=== PATIENT | female | born 1950 | race Hispanic/Latino ===

== ENCOUNTER 2018-08-06 12:58 | Emergency (ER) | payer MEDICARE ==
[~2018-08-06] VITALS: Ht 149.9 cm; Wt 72.6 kg
[2018-08-06] MEDS ORDERED: HUMULIN-R100 UNITS/ (14:23)
[2018-08-06] MEDS ORDERED: TRIAMTERENE-HCTZ1 EA PO (14:23)
[2018-08-06] MEDS ORDERED: OMEPRAZOLE40 MG PO (14:23)
[2018-08-06] MEDS ORDERED: ATORVASTATIN CA20 MG PO (14:23)
[2018-08-06] MEDS ORDERED: NIFEDIPINE ER30 M1 PEG (14:23)
[2018-08-06] MEDS ORDERED: CLONIDINE HCL0.1 MG PO (14:23)
[2018-08-06] MEDS ORDERED: LOSARTAN POTAS100 MG PO (14:23)
[2018-08-06] MEDS ORDERED: CARVEDILOL12.5 MG PO (14:23)
[2018-08-06] MEDS ORDERED: PLAVIX75 MG PO (14:23)
[2018-08-06] MEDS ORDERED: LANTUS 3ML100 UNITS/ SQ (14:23)
[2018-08-06] MEDS ORDERED: ASPIR 8181 MG PO (14:23)
[2018-08-06] MEDS ORDERED: ULTRAM 50MG50 MG PO (14:23)
--- NOTE | 2018-08-06 15:28 | Diagnostic Imaging Report ---
LEFT FOOT X-RAY - 3 VIEWS, LEFT ANKLE X-RAY-3 VIEWS HISTORY: Left hip pain for 4 days, no trauma, \[id number] \[id number] COMPARISON: None available. FINDINGS: Bones: No acute displaced fracture. Osseous alignment is within normal limits. Joints: The joint spaces are well-maintained. Soft tissues: Calcaneal enthesopathic measuring 0.7 x 0.5 cm. IMPRESSION: No acute radiographic abnormality. Large calcaneal enthesophyte may relate to this patient pain. Signed by: Dr. Kayce Veronica M.D. on 08/06/2018 3:25 PM
--- NOTE | 2018-08-06 15:28 | Diagnostic Imaging Report ---
LEFT FOOT X-RAY - 3 VIEWS, LEFT ANKLE X-RAY-3 VIEWS HISTORY: Left hip pain for 4 days, no trauma, \[id number] \[id number] COMPARISON: None available. FINDINGS: Bones: No acute displaced fracture. Osseous alignment is within normal limits. Joints: The joint spaces are well-maintained. Soft tissues: Calcaneal enthesopathic measuring 0.7 x 0.5 cm. IMPRESSION: No acute radiographic abnormality. Large calcaneal enthesophyte may relate to this patient pain. Signed by: Dr. Kayce Veronica M.D. on 08/06/2018 3:25 PM
--- OUTSIDE RECORDS SUMMARY | 2018-08-10 13:30 | XMS REPORT | Summary of Care ---
Author Organization Unknown Address Unknown Phone Unavailable Encounter ARSH Joseph(EVETTE) [id number] Date(s): 05/09/14 - 05/11/14 [facility] [id number] Discharge Disposition: Home Physician Attending: Alen Dyer MD Physician Admitting: Alen Dyer MD Reason for Visit CHEST PAIN Vital Signs 1 2 3 Most recent to oldest [Reference Range]: 144.78 cm (05/10/14 5:00 AM) 144.78 cm (05/09/14 11:13 PM) Height 75.142 kg (05/10/14 5:13 AM) Current Weight 98.0 DegF (05/11/14 4:00 PM) 98.3 DegF (05/11/14 12:00 PM) 98.6 DegF (05/11/14 8:00 AM) Temperature Oral [96.4-99.1 DegF] 127 mmHg (05/11/14 4:00 PM) 194 mmHg *HI* (05/11/14 12:00 PM) 176 mmHg *HI* (05/11/14 8:00 AM) Systolic Blood Pressure [90-140 mmHg] 79 mmHg (05/11/14 4:00 PM) 82 mmHg (05/11/14 12:00 PM) 93 mmHg *HI* (05/11/14 8:00 AM) Diastolic Blood Pressure [60-90 mmHg] 18 BRMIN (05/11/14 4:00 PM) 16 BRMIN (05/11/14 12:00 PM) 16 BRMIN (05/11/14 8:00 AM) Respiratory Rate [14-20 BRMIN] 61 bpm (05/11/14 4:00 PM) 58 bpm *LOW* (05/11/14 12:00 PM) 60 bpm (05/11/14 8:00 AM) Peripheral Pulse Rate [60-100 bpm] 75 kg (05/10/14 5:00 AM) 75 kg (05/09/14 11:13 PM) Weight 35.78 m2 (05/10/14 5:00 AM) 35.78 m2 (05/09/14 11:13 PM) Body Mass Index Problem List Condition Effective Dates Status Health Status Informant Asthma(Confirmed) Resolved Diabetes(Confirmed) Resolved HTN - Resolved Hypertension(Confirm ed) Osteoporosis(Confirm Resolved ed) Allergies, Adverse Reactions, Alerts Substance Reaction Severity Status NKDA Active Medications amLODIPine 10 mg, 2 tab, Route: PO, Drug form: TAB, Daily, Dosing Weight 75, kg, Start date : 05/11/14 9:00:00, Duration: 30 day, Stop date: 06/09/14 9:00:00 Notes: (Same as: Norvasc) Start Date: 05/11/14 Stop Date: 05/11/14 Status: Discontinued amLODIPine 10 mg oral tablet 10 mg=1 tab, PO, Daily, # 30 tab, 0 Refill(s) Start Date: 05/10/14 Status: Ordered anastrozole 1 mg, 1 tab, Route: PO, Drug form: TAB, Daily, Dosing Weight 75, kg, Start date: 05/11/14 9:00:00, Stop date: 06/08/14 20:00:00 Start Date: 05/11/14 Stop Date: 05/11/14 Status: Discontinued anastrozole 1 mg oral tablet 1 mg=1 tab, PO, Daily, # 30 tab, 0 Refill(s) Start Date: 05/10/14 Status: Ordered aspirin 81 mg tablet, enteric coated 81 mg=1 tab, PO, Daily, # 30 tab, 1 Refill(s) Start Date: 05/11/14 Stop Date: 07/10/14 Status: Ordered aspirin 81 mg tablet, enteric coated 81 mg, 1 tab, Route: PO, Drug form: ECTAB, Daily, Dosing Weight 75, kg, Priority : STAT, Start date: 05/10/14 11:07:00, Duration: 30 day, Stop date: 06/09/14 9:0 0:00 Notes: Do not crush or chew.(Same As: Ecotrin) Start Date: 05/10/14 Stop Date: 05/11/14 Status: Discontinued atorvastatin 80 mg, 2 tab, Route: PO, Drug form: TAB, Bedtime, Dosing Weight 75, kg, Start da te: 05/10/14 21:00:00, Duration: 30 day, Stop date: 06/08/14 21:00:00 Notes: (Same as: Lipitor) Start Date: 05/10/14 Stop Date: 05/11/14 Status: Discontinued atorvastatin 80 mg oral tablet 80 mg=1 tab, PO, Bedtime, # 30 tab, 0 Refill(s) Start Date: 05/10/14 Status: Ordered atropine 0.5 mg, 5 mL, Route: IVP, Drug form: INJ, PRN, PRN Bradycardia, Start date: 04/25 04/08 5:26:00, Duration: 30 day, Stop date: 06/09/14 5:25:00 Start Date: 05/10/14 Stop Date: 05/11/14 Status: Discontinued clopidogrel 75 mg oral tablet 75 mg=1 tab, PO, Daily, # 30 tab, 1 Refill(s) Start Date: 05/11/14 Stop Date: 07/10/14 Status: Ordered Dextrose 50% Syringe 12.5 gm, 25 mL, Route: IVP, Drug Form: INJ, Dosing Weight 75, kg, PRN, PRN Blood Glucose Results, Start date: 05/10/14 4:55:00, Duration: 30 day, Stop date: 4:54:00 Start Date: 05/10/14 Stop Date: 05/11/14 Status: Discontinued Dextrose 50% Syringe 25 gm, 50 mL, Route: IVP, Drug Form: INJ, Dosing Weight 75, kg, PRN, PRN Blood G lucose Results, Start date: 05/10/14 4:55:00, Duration: 30 day, Stop date: 06/09 4:54:00 Start Date: 05/10/14 Stop Date: 05/11/14 Status: Discontinued GlipiZIDE XL 10 mg oral tablet, extended release 10 mg=1 tab, PO, BID, # 30 tab, 0 Refill(s) Start Date: 05/10/14 Status: Ordered GlipiZIDE XL 10 mg oral tablet, extended release 10 mg, 1 tab, Route: PO, Drug form: ERTAB, BID, Dosing Weight 75, kg, Start date : 05/10/14 17:00:00, Duration: 30 day, Stop date: 06/09/14 9:00:00 Notes: (Same as: Glucotrol XL)"Do Not Crush" 30 min before meals. Start Date: 05/10/14 Stop Date: 05/11/14 Status: Discontinued glucagon 1 mg, Route: IM, Drug form: PDR/INJ, PRN, Dosing Weight 75, kg, PRN Blood Glucos e Results, Start date: 05/10/14 4:55:00, Duration: 30 day, Stop date: 06/09/14 4 :54:00 Start Date: 05/10/14 Stop Date: 05/11/14 Status: Discontinued Humalog sliding scale, SUB-Q, TID-Before Meals, as needed, 0 Refill(s) Special Instructions: as needed Start Date: 05/11/14 Status: Ordered insulin aspart 4 unit, 0.04 mL, Route: SUB-Q, Drug form: SOLN, TID-Before Meals, Dosing Weight 75, kg, PRN Blood Glucose Results, Start date: 05/10/14 4:55:00, Duration: 30 da y, Stop date: 06/09/14 4:54:00 Notes: Roll in palms of hands gently; Do not shake vigorously. (Same as: NovoLO G)"single patient use only" Stable for 28 days at room temperature.Expires in _ ____ days from Date Start Date: 05/10/14 Stop Date: 05/11/14 Status: Discontinued insulin aspart 5 unit, 0.05 mL, Route: SUB-Q, Drug form: SOLN, TID-Before Meals, Dosing Weight 75, kg, PRN Blood Glucose Results, Start date: 05/10/14 4:55:00, Duration: 30 da y, Stop date: 06/09/14 4:54:00 Notes: Roll in palms of hands gently; Do not shake vigorously. (Same as: NovoLO G)"single patient use only" Stable for 28 days at room temperature.Expires in _ ____ days from Date Start Date: 05/10/14 Stop Date: 05/11/14 Status: Discontinued insulin aspart 3 unit, 0.03 mL, Route: SUB-Q, Drug form: SOLN, TID-Before Meals, Dosing Weight 75, kg, PRN Blood Glucose Results, Start date: 05/10/14 4:55:00, Duration: 30 da y, Stop date: 06/09/14 4:54:00 Notes: Roll in palms of hands gently; Do not shake vigorously. (Same as: NovoLO G)"single patient use only" Stable for 28 days at room temperature.Expires in _ ____ days from Date Start Date: 05/10/14 Stop Date: 05/11/14 Status: Discontinued insulin aspart 2 unit, 0.02 mL, Route: SUB-Q, Drug form: SOLN, TID-Before Meals, Dosing Weight 75, kg, PRN Blood Glucose Results, Start date: 05/10/14 4:55:00, Duration: 30 da y, Stop date: 06/09/14 4:54:00 Notes: Roll in palms of hands gently; Do not shake vigorously. (Same as: NovoLO G)"single patient use only" Stable for 28 days at room temperature.Expires in _ ____ days from Date Start Date: 05/10/14 Stop Date: 05/11/14 Status: Discontinued insulin aspart 1 unit, 0.01 mL, Route: SUB-Q, Drug form: SOLN, TID-Before Meals, Dosing Weight 75, kg, PRN Blood Glucose Results, Start date: 05/10/14 4:55:00, Duration: 30 da y, Stop date: 06/09/14 4:54:00 Notes: Roll in palms of hands gently; Do not shake vigorously. (Same as: NovoLO G)"single patient use only" Stable for 28 days at room temperature.Expires in _ ____ days from Date Start Date: 05/10/14 Stop Date: 05/11/14 Status: Discontinued Insulin regular 5 unit, Route: IV, ONCE, Dosing Weight 75, kg, Start date: 05/10/14 4:12:00, Sto p date: 05/10/14 4:12:00 Start Date: 05/10/14 Stop Date: 05/10/14 Status: Completed Insulin regular 10 unit, 0.1 mL, Route: IV, Drug form: INJ, ONCE, Dosing Weight 75, kg, Start da te: 05/10/14 4:39:00, Stop date: 05/10/14 4:39:00 Notes: (Same as: Humulin R and NovoLIN R) (Do not shake) Start Date: 05/10/14 Stop Date: 05/10/14 Status: Completed Insulin regular 10 unit, Route: SUB-Q, ONCE, Dosing Weight 75, kg, Priority: STAT, Start date: 0 05/10/14 1:56:00, Stop date: 05/10/14 1:56:00 Start Date: 05/10/14 Stop Date: 05/10/14 Status: Completed Klor-Con 10 0 Refill(s) Start Date: 05/10/14 Status: Ordered Lantus 25 unit, SUB-Q, Bedtime, 0 Refill(s) Start Date: 05/11/14 Status: Ordered Lantus 25 unit, Route: SUB-Q, Bedtime, Dosing Weight 75, kg, Start date: 05/11/14 21:00 :00, Duration: 30 day, Stop date: 06/09/14 21:00:00 Start Date: 05/11/14 Stop Date: 05/11/14 Status: Deleted Levemir FlexPen 25 unit, 0.25 mL, Route: SUB-Q, Drug form: INJ, Bedtime, Start date: 05/11/14 21 :00:00, Duration: 30 day, Stop date: 06/09/14 21:00:00 Notes: Same as Levemir "single patient use only" Start Date: 05/11/14 Stop Date: 05/11/14 Status: Canceled lisinopril 20 mg, 1 tab, Route: PO, Drug form: TAB, ONCE, Dosing Weight 75, kg, Priority: S TAT, Start date: 05/10/14 2:20:00, Stop date: 05/10/14 2:20:00 Notes: (Same as: Prinivil, Zestril) Start Date: 05/10/14 Stop Date: 05/10/14 Status: Completed magnesium sulfate 2 gm, 50 mL, Route: IVPB, Drug form: INJ, Q2H, Dosing Weight 75, kg, Total dose= 4 gm, Priority: NOW, Start date: 05/11/14 9:08:00, Duration: 2 doses or times, S top date: 05/11/14 11:00:00 Start Date: 05/11/14 Stop Date: 05/11/14 Status: Completed metFORMIN 500 mg oral tablet 500 mg=1 tab, PO, TID, # 30 tab, 0 Refill(s) Start Date: 05/10/14 Status: Ordered metoprolol tartrate 25 mg, 1 tab, Route: PO, Drug form: TAB, ONCE, Dosing Weight 75, kg, Priority: S TAT, Start date: 05/10/14 2:20:00, Stop date: 05/10/14 2:20:00 Notes: (Same as: Lopressor) Start Date: 05/10/14 Stop Date: 05/10/14 Status: Completed metoprolol tartrate 100 mg, 2 tab, Route: PO, Drug form: TAB, Q12H, Dosing Weight 75, kg, Start date : 05/10/14 21:00:00, Duration: 30 day, Stop date: 06/09/14 9:00:00 Notes: (Same as: Lopressor) Start Date: 05/10/14 Stop Date: 05/11/14 Status: Discontinued metoprolol tartrate 100 mg oral tablet 100 mg=1 tab, PO, BID, # 180 tab, 0 Refill(s) Start Date: 05/10/14 Status: Ordered nitroglycerin 0.4 mg sublingual tablet 0.4 mg, 1 tab, Route: SL, Drug form: TAB, Q5Min, PRN Chest Pain, Start date: 5:26:00, Duration: 30 day, Stop date: 06/09/14 5:25:00 Notes: (Same as:Nitroquick, Nitrostat)"Do Not Crush" Sublingual tablet Start Date: 05/10/14 Stop Date: 05/10/14 Status: Discontinued nitroglycerin 2% ointment 1 inch, Route: TOP, Drug Form: OINT, Dosing Weight 75, kg, ONCE, STAT, Start heidi e: 05/09/14 23:50:00, Stop date: 05/09/14 23:50:00 Start Date: 05/09/14 Stop Date: 05/10/14 Status: Completed nitroglycerin SL Tab 0.4 mg, 1 tab, Route: SL, Drug form: TAB, Q5Min, Dosing Weight 75, kg, PRN Chest Pain, Start date: 05/10/14 16:44:00, Duration: 3 doses or times, Stop date: [place] it[place] # of times Notes: (Same as:Nitroquick, Nitrostat)"Do Not Crush" Sublingual tablet Start Date: 05/10/14 Stop Date: 05/11/14 Status: Discontinued nitroglycerin SL Tab 0.4 mg, 1 tab, Route: SL, Drug form: TAB, Q5Min, Dosing Weight 75, kg, PRN Chest Pain, Start date: 05/10/14 4:56:00, Duration: 3 doses or times, Stop date: [place] # of times Notes: (Same as:Nitroquick, Nitrostat)"Do Not Crush" Sublingual tablet Start Date: 05/10/14 Stop Date: 05/11/14 Status: Discontinued Nitrostat 0.4 mg sublingual tablet 0.4 mg=1 tab, SL, Q5Min, Chest Pain, # 100 tab, 0 Refill(s) Start Date: 05/10/14 Status: Ordered normal saline 0.9% IV 500 mL 500 mL, Rate: 100 ml/hr, Infuse over: 5 hr, Route: IV, Dosing Weight 75 kg, Tota l Volume: 500, Priority: NOW, Start date: 05/10/14 11:06:00, Duration: 30 day, S top date: 06/09/14 11:05:00 Start Date: 05/10/14 Stop Date: 05/10/14 Status: Discontinued normal saline 0.9% IV 500 mL 500 mL, Rate: 75 ml/hr, Infuse over: 6.7 hr, Route: IV, Dosing Weight 75 kg, Tot al Volume: 500, Priority: NOW, Start date: 05/10/14 16:43:00, Duration: 14 hr, S top date: 05/11/14 6:42:00 Start Date: 05/10/14 Stop Date: 05/11/14 Status: Completed NS (Bolus) IV 100 mL, 100 ml/hr, Infuse Over: 1 hr, Route: IV, 100, Drug form: INJ, ONCE, Prio rity: STAT, Dosing Weight 75 kg, Start date: 05/11/14 11:01:00, Duration: 1 dose s or times, Stop date: 05/11/14 11:01:00 Start Date: 05/11/14 Stop Date: 05/11/14 Status: Completed NS (Bolus) IV 50 mL, 50 ml/hr, Infuse Over: 1 hr, Route: IV, 50, Drug form: INJ, ONCE, Priorit y: STAT, Dosing Weight 75 kg, Start date: 05/11/14 10:08:00, Duration: 1 doses o r times, Stop date: 05/11/14 10:08:00 Start Date: 05/11/14 Stop Date: 05/11/14 Status: Completed NS (Bolus) IV 500 mL, 500 ml/hr, Infuse Over: 1 hr, Route: IV, ONCE, Priority: STAT, Dosing We ight 75 kg, Start date: 05/11/14 12:36:00, Duration: 1 doses or times, Stop date : 05/11/14 12:36:00 Start Date: 05/11/14 Stop Date: 05/11/14 Status: Completed NS (Bolus) IV 1,000 mL, Route: IV, ONCE, Dosing Weight 75 kg, Start date: 05/10/14 1:56:00, St op date: 05/10/14 1:56:00 Start Date: 05/10/14 Stop Date: 05/10/14 Status: Completed omeprazole 20 mg oral delayed release capsule 20 mg=1 cap, PO, PRN, # 30 cap, 0 Refill(s) Start Date: 05/10/14 Stop Date: 06/09/14 Status: Ordered pantoprazole 40 mg, 1 tab, Route: PO, Drug form: ECTAB, Before Dinner, Dosing Weight 75, kg, Priority: Routine, Start date: 05/10/14 16:30:00, Duration: 30 day, Stop date: 0 06/08/14 16:30:00 Notes: Tablet should not be chewed or crushed.(Same as: Protonix) Start Date: 05/10/14 Stop Date: 05/11/14 Status: Discontinued Plavix 75 mg, 1 tab, Route: PO, Drug form: TAB, Daily, Dosing Weight 75, kg, Start date : 05/11/14 9:00:00, Duration: 30 day, Stop date: 06/09/14 9:00:00 Notes: (Same As: Plavix) Start Date: 05/11/14 Stop Date: 05/11/14 Status: Discontinued potassium chloride 20 mEq, 100 mL, Route: IVPB, Drug form: INJ, Q2H, Dosing Weight 75, kg, Total do se=40 mEq, Priority: NOW, Start date: 05/11/14 9:10:00, Duration: 2 doses or radha es, Stop date: 05/11/14 11:00:00 Notes: (Same as: KCL) Infuse no faster than 10 mEq/hr if given peripherally. Start Date: 05/11/14 Stop Date: 05/11/14 Status: Completed predniSONE 20 mg oral tablet See Special Instructions, PO, Daily, 12 day regimen: Days 1-4 - 40 mg (2 tabs) daily Days 5-8 - 20 mg (1 tab) daily Days 9-12 - 10 mg (1/2 tab) daily, # 12 t ab, 0 Refill(s) Special Instructions: 12 day regimen:Days 1-4 - 40 mg (2 tabs) dailyDays 5-8 - 2 0 mg (1 tab) dailyDays 9-12 - 10 mg (1/2 tab) daily Start Date: 05/10/14 Stop Date: 05/22/14 Status: Ordered Saline Flush 0.9% 5 ml, Route: IVP, Drug Form: INJ, Dosing Weight 75, kg, Q12H, Start date: 21:00:00, Duration: 30 day, Stop date: 06/09/14 9:00:00 Notes: (Same as: BD Posiflush) Start Date: 05/10/14 Stop Date: 05/11/14 Status: Discontinued Saline Flush 0.9% 5 ml, Route: IVP, Drug Form: INJ, Dosing Weight 75, kg, PRN, PRN Line Flush, Sta rt date: 05/10/14 16:44:00, Duration: 30 day, Stop date: 06/09/14 16:43:00 Notes: (Same as: BD Posiflush) Start Date: 05/10/14 Stop Date: 05/11/14 Status: Discontinued Saline Flush 0.9% 5 ml, Route: IVP, Drug Form: INJ, Dosing Weight 75, kg, Q12H, Start date: 9:00:00, Duration: 30 day, Stop date: 06/08/14 21:00:00 Notes: (Same as: BD Posiflush) Start Date: 05/10/14 Stop Date: 05/11/14 Status: Discontinued Saline Flush 0.9% 5 ml, Route: IVP, Drug Form: INJ, Dosing Weight 75, kg, PRN, PRN Line Flush, Sta rt date: 05/10/14 4:56:00, Duration: 30 day, Stop date: 06/09/14 4:55:00 Notes: (Same as: BD Posiflush) Start Date: 05/10/14 Stop Date: 05/11/14 Status: Discontinued triamterene 0 Refill(s) Start Date: 05/10/14 Stop Date: 05/11/14 Status: Discontinued Tylenol with Codeine #3 oral tablet 1 tab, Route: PO, Drug Form: TAB, Dosing Weight 75, kg, Q6H, PRN as needed for p ain, Start date: 05/10/14 5:20:00, Duration: 30 day, Stop date: 06/09/14 5:19:00 Notes: Do not exceed 4gm/day of acetaminophen. (Same as: Tylenol with Codeine # 3) Start Date: 05/10/14 Stop Date: 05/11/14 Status: Discontinued Tylenol with Codeine #3 oral tablet 1 tab, Route: PO, Dosing Weight 75, kg, Q6H, PRN Pain, Start date: 05/10/14 17:3 9:00, Duration: 30 day, Stop date: 06/09/14 17:38:00 Start Date: 05/10/14 Stop Date: 05/10/14 Status: Deleted Zofran 4 mg, 2 mL, Route: IV, Drug form: INJ, Q8H, Dosing Weight 75, kg, PRN as needed for nausea/vomiting, Start date: 05/10/14 5:20:00, Duration: 30 day, Stop date: 06/09/14 5:19:00 Notes: (Same as: Zofran) Start Date: 05/10/14 Stop Date: 05/11/14 Status: Discontinued Zofran 4 mg, Route: IV, Drug form: INJ, Q8H, Dosing Weight 75, kg, PRN Nausea, Start da te: 05/10/14 17:39:00, Duration: 30 day, Stop date: 06/09/14 17:38:00 Start Date: 05/10/14 Stop Date: 05/10/14 Status: Deleted Results ELECTROLYTES 1 2 3 Most recent to oldest [Reference Range]: 138 mEq/L (05/11/14 4:13 AM) 139 mEq/L (05/10/14 6:09 AM) 135 mEq/L (05/09/14 12:15 AM) Sodium Lvl [135-145 mEq/L] 3.1 mEq/L *LOW* (05/11/14 4:13 AM) 3.8 mEq/L (05/10/14 6:09 AM) 3.7 mEq/L (05/09/14 12:15 AM) Potassium Lvl [3.5-5.1 mEq/L] 102 mEq/L (05/11/14 4:13 AM) 103 mEq/L (05/10/14 6:09 AM) 100 mEq/L (05/09/14 12:15 AM) Chloride Lvl [95-109 mEq/L] 29 mEq/L (05/11/14 4:13 AM) 28 mEq/L (05/10/14 6:09 AM) 23 mEq/L *LOW* (05/09/14 12:15 AM) CO2 [24-32 mEq/L] 10.1 mEq/L (05/11/14 4:13 AM) 11.8 mEq/L (05/10/14 6:09 AM) 15.7 mEq/L (05/09/14 12:15 AM) AGAP [10.0-20.0 mEq/L] CHEM PANEL 1 2 3 Most recent to oldest [Reference Range]: 0.8 mg/dL (05/11/14 4:13 AM) 0.7 mg/dL (05/10/14 6:09 AM) 1.0 mg/dL (05/09/14 12:15 AM) Creatinine Lvl [0.5-1.4 mg/dL] 79 mL/min/1.73m2 1 *NA* (05/11/14 4:13 AM) 92 mL/min/1.73m2 2 *NA* (05/10/14 6:09 AM) 60 mL/min/1.73m2 3 *NA* (05/09/14 12:15 AM) eGFR 16 mg/dL (05/11/14 4:13 AM) 23 mg/dL *HI* (05/10/14 6:09 AM) 24 mg/dL *HI* (05/09/14 12:15 AM) BUN [7-22 mg/dL] 24 (05/09/14 12:15 AM) B/C Ratio [6-25] 225 mg/dL 4 *HI* (05/11/14 4:13 AM) 247 mg/dL 5 *HI* (05/10/14 6:09 AM) 371 mg/dL 6 *HI* (05/09/14 12:15 AM) Glucose Lvl [70-99 mg/dL] 6.9 g/dL (05/09/14 12:15 AM) Total Protein [6.4-8.4 g/dL] 3.7 g/dL (05/09/14 12:15 AM) Albumin Lvl [3.5-5.0 g/dL] 3.2 g/dL (05/09/14 12:15 AM) Globulin [2.0-4.0 g/dL] 1.2 (05/09/14 12:15 AM) A/G Ratio [0.7-1.6] 8.7 mg/dL (05/11/14 4:13 AM) 9.0 mg/dL (05/10/14 6:09 AM) 9.2 mg/dL (05/09/14 12:15 AM) Calcium Lvl [8.5-10.5 mg/dL] 1.6 mg/dL *LOW* (05/11/14 4:13 AM) Magnesium Lvl [1.8-2.4 mg/dL] 55 unit/L (05/09/14 12:15 AM) ALT [0-65 unit/L] 25 unit/L (05/09/14 12:15 AM) AST [0-37 unit/L] 70 unit/L (05/09/14 12:15 AM) Alk Phos [39-136 unit/L] 0.7 mg/dL (05/09/14 12:15 AM) Bili Total [0.2-1.3 mg/dL] 1Result Comment: The eGFR is calculated using the CKD-EPI formula. In most young, healthy individuals the eGFR will be >90 mL/min/1.73m2. The eGFR declines with age. An eGFR of 60-89 may be normal in some populations, particularly the elderly, for whom the CKD-EPI formula has not been extensively validated. Use of the eGFR is not recommended in the following populations: Individuals with unstable creatinine concentrations, including patients and those with serious co-morbid conditions. Patients with extremes in muscle mass or diet. The data above are obtained from the National Kidney Disease Education Program ( NKDEP) which additionally recommends that when the eGFR is used in patients with extremes of body mass index for purposes of drug dosing, the eGFR should be mul tiplied by the estimated BMI. 2Result Comment: The eGFR is calculated using the CKD-EPI formula. In most young, healthy individuals the eGFR will be >90 mL/min/1.73m2. The eGFR declines with age. An eGFR of 60-89 may be normal in some populations, particularly the elderly, for whom the CKD-EPI formula has not been extensively validated. Use of the eGFR is not recommended in the following populations: Individuals with unstable creatinine concentrations, including patients and those with serious co-morbid conditions. Patients with extremes in muscle mass or diet. The data above are obtained from the National Kidney Disease Education Program ( NKDEP) which additionally recommends that when the eGFR is used in patients with extremes of body mass index for purposes of drug dosing, the eGFR should be mul tiplied by the estimated BMI. 3Result Comment: The eGFR is calculated using the CKD-EPI formula. In most young, healthy individuals the eGFR will be >90 mL/min/1.73m2. The eGFR declines with age. An eGFR of 60-89 may be normal in some populations, particularly the elderly, for whom the CKD-EPI formula has not been extensively validated. Use of the eGFR is not recommended in the following populations: Individuals with unstable creatinine concentrations, including patients and those with serious co-morbid conditions. Patients with extremes in muscle mass or diet. The data above are obtained from the National Kidney Disease Education Program ( NKDEP) which additionally recommends that when the eGFR is used in patients with extremes of body mass index for purposes of drug dosing, the eGFR should be mul tiplied by the estimated BMI. 4Interpretive Data: Adult reference range values reflect the clinical guidelines of the [employer]. 5Interpretive Data: Adult reference range values reflect the clinical guidelines of the [employer]. 6Interpretive Data: Adult reference range values reflect the clinical guidelines of the [place] [employer]. CARDIAC ENZYMES 1 2 3 Most recent to oldest [Reference Range]: 50 unit/L (05/10/14 12:56 PM) 57 unit/L (05/10/14 6:09 AM) 77 unit/L (05/09/14 12:15 AM) Total CK [12-191 unit/L] 2.4 ng/mL (05/09/14 12:15 AM) CK MB [0.5-3.6 ng/mL] 3.1 *HI* (05/09/14 12:15 AM) CK MB Index [0.0-2.5] <0.02 ng/mL (05/10/14 12:56 PM) <0.02 ng/mL (05/10/14 6:09 AM) <0.02 ng/mL (05/09/14 12:15 AM) Troponin-I [0.00-0.40 ng/mL] 71 pg/mL 7 (05/09/14 12:15 AM) BNP [<=100 pg/mL] 7Interpretive Data: Elevated results are in line with increasing severity of congestive heart failure. Minor elevations between 100 and 300 may be seen with Myocardial Ischemia, Sodium retaining drugs, and compensated/treated heart failure. HEMATOLOGY 1 2 3 Most recent to oldest [Reference Range]: 6.4 K/CMM (05/11/14 4:13 AM) 9.6 K/CMM (05/10/14 6:09 AM) 9.6 K/CMM (05/09/14 12:15 AM) WBC [3.7-10.4 K/CMM] 4.18 M/CMM *LOW* (05/11/14 4:13 AM) 4.09 M/CMM *LOW* (05/10/14 6:09 AM) 4.37 M/CMM (05/09/14 12:15 AM) RBC [4.20-5.40 M/CMM] 12.7 g/dL (05/11/14 4:13 AM) 12.4 g/dL (05/10/14 6:09 AM) 13.3 g/dL (05/09/14 12:15 AM) Hgb [12.0-16.0 g/dL] 36.0 % (05/11/14 4:13 AM) 35.6 % *LOW* (05/10/14 6:09 AM) 37.9 % (05/09/14 12:15 AM) Hct [36.0-48.0 %] 86.0 fL (05/11/14:13 AM) 87.0 fL (05/10/14 6:09 AM) 86.7 fL (05/09/14 12:15 AM) MCV [81.0-99.0 fL] 30.4 pg (05/11/14:13 AM) 30.2 pg (05/10/14 6:09 AM) 30.5 pg (05/09/14 12:15 AM) MCH [27.0-31.0 pg] 35.3 g/dL (05/11/14 4:13 AM) 34.8 g/dL (05/10/14 6:09 AM) 35.1 g/dL (05/09/14 12:15 AM) MCHC [32.0-36.0 g/dL] 12.9 % (05/11/14:13 AM) 13.0 % (05/10/14 6:09 AM) 12.9 % (05/09/14 12:15 AM) RDW [11.5-14.5 %] 218 K/CMM (05/11/14 4:13 AM) 225 K/CMM (05/10/14 6:09 AM) 243 K/CMM (05/09/14 12:15 AM) Platelet [133-450 K/CMM] 8.4 fL (05/11/14 4:13 AM) 8.4 fL (05/10/14 6:09 AM) 8.8 fL (05/09/14 12:15 AM) MPV [7.4-10.4 fL] 51.7 % (05/11/14 4:13 AM) 55.7 % (05/10/14 6:09 AM) 68.7 % (05/09/14 12:15 AM) Segs [45.0-75.0 %] 34.0 % (05/11/14 4:13 AM) 33.7 % (05/10/14 6:09 AM) 25.9 % (05/09/14 12:15 AM) Lymphocytes [20.0-40.0 %] 9.5 % (05/11/14 4:13 AM) 9.2 % (05/10/14 6:09 AM) 4.7 % (05/09/14 12:15 AM) Monocytes [2.0-12.0 %] 3.5 % (05/11/14 4:13 AM) 0.8 % (05/10/14 6:09 AM) Eosinophils [0.0-4.0 %] 1.3 % *HI* (05/11/14 4:13 AM) 0.6 % (05/10/14 6:09 AM) 0.7 % (05/09/14 12:15 AM) Basophils [0.0-1.0 %] 3.3 K/CMM (05/11/14 4:13 AM) 5.3 K/CMM (05/10/14 6:09 AM) 6.6 K/CMM (05/09/14 12:15 AM) Segs-Bands # [1.5-8.1 K/CMM] 2.2 K/CMM (05/11/14 4:13 AM) 3.2 K/CMM (05/10/14 6:09 AM) 2.5 K/CMM (05/09/14 12:15 AM) Lymphocytes # [1.0-5.5 K/CMM] 0.6 K/CMM (05/11/14 4:13 AM) 0.9 K/CMM *HI* (05/10/14 6:09 AM) 0.5 K/CMM (05/09/14 12:15 AM) Monocytes # [0.0-0.8 K/CMM] 0.2 K/CMM (05/11/14 4:13 AM) 0.1 K/CMM (05/10/14 6:09 AM) Eosinophils # [0.0-0.5 K/CMM] 0.1 K/CMM (05/11/14 4:13 AM) 0.1 K/CMM (05/10/14 6:09 AM) 0.1 K/CMM (05/09/14 12:15 AM) Basophils # [0.0-0.2 K/CMM] 13.7 seconds (05/09/14 12:15 AM) PT [12.0-14.7 seconds] 1.06 8 (05/09/14 12:15 AM) INR [0.85-1.17] 27.5 seconds 9 (05/09/14 12:15 AM) PTT [22.9-35.8 seconds] 8Interpretive Data: RECOMMENDED RANGES FOR PROTIME INR: 2.0-3.0 for most medical and surgical thromboembolic states. 2.5-3.5 for artificial heart valves and recurrent embolism. INR SHOULD BE USED ONLY FOR PATIENTS ON STABLE ANTICOAGULANT THERAPY. 9Interpretive Data: Heparin Therapeutic Range: 57 - 92 [facility] Medications Administered During Your Visit No data available for this section Immunizations No data available for this section Procedures Procedure Type Body Site Date of Procedure Related Diagnosis Lumpectomy of breast Partial mastectomy Stent placement Social History Social History Type Response Smoking Status Never smoker, Exposure to Tobacco Smoke None, Cigarette Smoking Last 365 Days No, Reg Smoking Cessation Counseling No Assessment and Plan Extracted from: Title: [id number] Author: Brett Markham MD Date: 05/11/14 Impression and Plan Diagnosis: Unstable angina pectoris (ICD9 411.1, Admitting, Medical), Stented coronary artery (ICD9 V45.82, Procedure, Medical), Diabetes mellitus type 1, uncontrolled, with complications (ICD9 250.93, Other, Medical), HTN - Hypertension (ICD9 401.9, Working, Medical). 1. Unstable Angina: S/P Cardiac Cath and angioplasty and stent placement by Dr Dyer on 05/10/2014. Now doing better. 2. Diabetes II : On Insulin . I discuss with her that she should follow with her primary MD for her Diabetes II. 3. Hypertension: On medication and stable at this time. Medically stable. Extracted from: Title: Clinical Document Author: Alen Dyer MD Date: 05/11/14 Progress Note [facility] Alen Dyer M.D. [facility] Admitting diagnosis: Unstable angina Discharge diagnosis: S/P BMS of pLAD hypokalemia and hypomag: being corrected before discharge Other Diagnosis: 1. Hypertension. 2. Diabetes on insulin and oral hypoglycemic agent. 3. CAD status post stent placement in 2003 and 2005 One at [facility] and another one in [place]. 4. Obesity. 5. Dyslipidemia. VitalsTmp(F)Tmp(C)[id number] 05/11 08:[id number]/93---[id number]------ 05/11 04:[id number]/73---[id number]------ 05/11 00:[id number]/75---[id number]------ 05/10 21:00 150/74---69--96------ 05/10 20:[id number]/73---66 General: No acute distress; Eyes:EOMI Neck: No JVD; no swelling Heart: S1, S2 normal; No murmur, No rub, No gallop Chest: B/L Air Entry +; No wheeze; No crepititions PA: BS+; NT; ND NS: AAOx3; No signs of lateralization Extremities,Lower : No edema; left groin: no swelling; bleeding or pain Labs & Diagnostic Work up: Labs (Last four charted values) WBC 6.4(MAY 11)9.6(MAY 10)9.6(MAY 09) Hgb 12.7(MAY 11)12.4(MAY 10)13.3(MAY 09) Hct 36.0(MAY 11)L 35.6(MAY 10)37.9(MAY 09) Plt 218(MAY 11)225(MAY 10)243(MAY 09) Na 138(MAY 11)139(MAY 10)135(MAY 09) K L 3.1(MAY 11)3.8(MAY 10)3.7(MAY 09) CO2 29(MAY 11)28(MAY 10)L 23(MAY 09) Cl 102(MAY 11)103(MAY 10)100(MAY 09) Cr 0.8(MAY 11)0.7(MAY 10)1.0(MAY 09) BUN 16(MAY 11)H 23(MAY 10)H 24(MAY 09) Glucose Random H 225(MAY 11)H 247(MAY 10)H 371(MAY 09) Mg L 1.6(MAY 11) Ca 8.7(MAY 11)9.0(MAY 10)9.2(MAY 09) PT 13.7(MAY 09) INR 1.06(MAY 09) PTT 27.5(MAY 09) Troponin <0.02(MAY 10)<0.02(MAY 10)<0.02(MAY 09) CK MB 2.4(MAY 09) Total CK 50(MAY 10)57(MAY 10)77(MAY 09) Medications Medications (28) Active Scheduled: (13) amLODIPine 5 mg TAB 10 mg 2 tab, PO, Daily anastrozole 1 mg TAB 1 mg 1 tab, PO, Daily aspirin 81 mg ECT 81 mg 1 tab, PO, Daily atorvastatin 40mg tab 80 mg 2 tab, PO, Bedtime clopidogrel 75 mg TAB 75 mg 1 tab, PO, Daily glipiZIDE 10 mg ERT 10 mg 1 tab, PO, BID insulin glargine 25 unit, SUB-Q, Bedtime magnesium sulfate 2 gm/H20 50ml soln 2 gm 50 mL, IVPB, Q2H metoprolol tartrate 50 mg TAB 100 mg 2 tab, PO, Q12H pantoprazole 40 mg ECT 40 mg 1 tab, PO, Before Dinner potassium chloride 20 mEq/100 ml PB 20 mEq 100 mL, IVPB, Q2H sodium chloride 0.9% 10 ml flush syr BD 5 ml, IVP, Q12H sodium chloride 0.9% 10 ml flush syr BD 5 ml, IVP, Q12H Continuous: (0) PRN: (15) acetaminophen-codeine 300-30 mg TAB 1 tab, PO, Q6H atropine 1 mg/10 ml INJ syringe 0.5 mg 5 mL, IVP, PRN Dextrose 50% 50 ml INJ syringe 12.5 gm 25 mL, IVP, PRN Dextrose 50% 50 ml INJ syringe 25 gm 50 mL, IVP, PRN glucagon recombinant 1 mg PDR 1 mg, IM, PRN insulin aspart 100 unit/ml 3ml Pen 1 unit 0.01 mL, SUB-Q, TID-Before Meals insulin aspart 100 unit/ml 3ml Pen 2 unit 0.02 mL, SUB-Q, TID-Before Meals insulin aspart 100 unit/ml 3ml Pen 3 unit 0.03 mL, SUB-Q, TID-Before Meals insulin aspart 100 unit/ml 3ml Pen 4 unit 0.04 mL, SUB-Q, TID-Before Meals insulin aspart 100 unit/ml 3ml Pen 5 unit 0.05 mL, SUB-Q, TID-Before Meals nitroglycerin 0.4 mg TAB 25's btl 0.4 mg 1 tab, SL, Q5Min nitroglycerin 0.4 mg TAB 25's btl 0.4 mg 1 tab, SL, Q5Min ondansetron 4mg/2mL INJ SYRINGE 4 mg 2 mL, IV, Q8H sodium chloride 0.9% 10 ml flush syr BD 5 ml, IVP, PRN sodium chloride 0.9% 10 ml flush syr BD 5 ml, IVP, PRN Hospital Course: Ms Mullen was admitted for chest pain and unstable angina. She has known stents from 2003 and 2005. She underwent coronary angiogram followed by BMS of prox LAD. post procedure she did well and medicine was consulted for management of her medical problems. 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
--- OUTSIDE RECORDS SUMMARY | 2018-08-10 13:30 | XMS REPORT | Summary of Care ---
Author Author [facility] Organization [facility] Address Unknown Phone Unavailable Encounter HQ Jake(FIN) [id number] Date(s): 04/30/18 - 04/30/18 [facility] [address] [place] [address]- Encounter Diagnosis Globus sensation (Discharge Diagnosis) - 04/30/18 Discharge Disposition: Home or Self Care Attending Physician: Adryan Howard DO Vital Signs 1 2 3 Most recent to oldest [Reference Range]: 98 DegF (04/30/18 11:28 PM) 98 DegF (04/30/18 10:00 PM) 98.7 DegF (04/30/18 5:40 PM) Temperature Oral [96.4-99.1 DegF] 107/58 mmHg (04/30/18 11:28 PM) 117/62 mmHg (04/30/18 10:00 PM) 185/79 mmHg *HI* (04/30/18 5:40 PM) Blood Pressure [90-140/60-90 mmHg] 18 BRMIN (04/30/18 11:28 PM) 17 BRMIN (04/30/18 10:00 PM) 18 BRMIN (04/30/18 5:40 PM) Respiratory Rate [14-20 BRMIN] 68 bpm (04/30/18 11:28 PM) 65 bpm (04/30/18 10:00 PM) 74 bpm (04/30/18 5:40 PM) Peripheral Pulse Rate [60-100 bpm] Problem List Condition Effective Dates Status Health Status Informant Adrenal Active abnormality(Confirme d) Asthma(Confirmed) Active Breast Resolved cancer(Confirmed) Diabetes(Confirmed) Active Hepatitis Resolved A(Confirmed) HTN - Active Hypertension(Confirm ed) Osteoporosis(Confirm Active ed) Stent Resolved placement(Confirmed) Allergies, Adverse Reactions, Alerts Substance Reaction Severity Status NKDA Active Medications GI cocktail 30 mL, Route: PO, Drug Form: SUSP, Dosing Weight 74.091, kg, ONCE, STAT, Start d ate: 04/30/18 21:44:00 CDT, Stop date: 04/30/18 21:44:00 CDT Notes: G.I. Cocktail=antacid with simethicone 22.5 mL - lidocaine viscous 7.5 mL Start Date: 04/30/18 Stop Date: 04/30/18 Status: Completed NexIUM 20 mg oral delayed release capsule 20 mg=1 cap, PO, Daily, # 30 cap, 0 Refill(s) Start Date: 04/30/18 Status: Ordered Results No data available for this section Immunizations Given and Recorded Vaccine Date Status Refusal Reason influenza virus vaccine, inactivated 07/20/15 Given Procedures Procedure Date Related Diagnosis Body Site Status Cholecystectomy Completed Lumpectomy of breast1 Completed Partial mastectomy2 Completed Stent placement Completed 1right 2right Social History Social History Type Response Substance Abuse Use: None. Alcohol Never Smoking Status Never smoker; Exposure to Tobacco Smoke None; Cigarette Smoking Last 365 Days No; Reg Smoking Cessation Counseling No entered on: 04/30/18 Assessment and Plan No data available for this section
--- OUTSIDE RECORDS SUMMARY | 2018-08-10 13:30 | XMS REPORT | Summary of Care ---
Author Author [facility] [place] [facility] Organization [facility] [place] [facility] Address Unknown Phone Unavailable Encounter HQ Kalyani_juliana(FIN) [id number] Date(s): 09/02/16 - 09/02/16 [facility] [place] [address] [place] [phone] Discharge Disposition: Home or Self Care Attending Physician: Quoc Michel MD Vital Signs No data available for this section Problem List Condition Effective Dates Status Health Status Informant Adrenal Active abnormality(Confirme d) Asthma(Confirmed) Active Breast Resolved cancer(Confirmed) Diabetes(Confirmed) Active Hepatitis Resolved A(Confirmed) HTN - Active Hypertension(Confirm ed) Osteoporosis(Confirm Active ed) Stent Resolved placement(Confirmed) Allergies, Adverse Reactions, Alerts Substance Reaction Severity Status NKDA Active Medications No data available for this section Results No data available for this section Immunizations Given and Recorded Vaccine Date Status Refusal Reason influenza virus vaccine, inactivated 07/20/15 Given Procedures Procedure Date Related Diagnosis Body Site Cholecystectomy Lumpectomy of breast1 Partial mastectomy2 Stent placement 1right 2right Social History Social History Type Response Smoking Status Never smoker; Exposure to Tobacco Smoke None; Cigarette Smoking Last 365 Days No; Reg Smoking Cessation Counseling No Assessment and Plan No data available for this section
--- OUTSIDE RECORDS SUMMARY | 2018-08-10 13:30 | XMS REPORT | Summary of Care ---
Author Author [facility] Organization [facility] Address Unknown Phone Unavailable Encounter HQ Jake(FIN) [id number] Date(s): 03/04/18 - 03/04/18 [facility] [address] [place] [address]- Encounter Diagnosis Back pain (Discharge Diagnosis) - 03/04/18 Colitis (Discharge Diagnosis) - 03/04/18 Discharge Disposition: Home or Self Care Attending Physician: Mhaendra Caldwell MD Vital Signs 1 2 3 Most recent to oldest [Reference Range]: 149.86 cm (03/04/18 7:37 AM) Height 98.7 DegF (03/04/18 2:43 PM) 98.4 DegF (03/04/18 11:00 AM) 98.5 DegF (03/04/18 7:37 AM) Temperature Oral [96.4-99.1 DegF] 148/64 mmHg *HI* (03/04/18 2:43 PM) 126/62 mmHg (03/04/18 11:00 AM) 129/63 mmHg (03/04/18 8:58 AM) Blood Pressure [90-140/60-90 mmHg] 18 BRMIN (03/04/18 2:43 PM) 16 BRMIN (03/04/18 11:00 AM) 17 BRMIN (03/04/18 8:58 AM) Respiratory Rate [14-20 BRMIN] 64 bpm (03/04/18 7:37 AM) Peripheral Pulse Rate [60-100 bpm] 74.091 kg (03/04/18 7:37 AM) Weight 32.99 m2 (03/04/18 7:37 AM) Body Mass Index Problem List Condition Effective Dates Status Health Status Informant Adrenal Active abnormality(Confirme d) Asthma(Confirmed) Active Breast Resolved cancer(Confirmed) Diabetes(Confirmed) Active Hepatitis Resolved A(Confirmed) HTN - Active Hypertension(Confirm ed) Osteoporosis(Confirm Active ed) Stent Resolved placement(Confirmed) Allergies, Adverse Reactions, Alerts Substance Reaction Severity Status NKDA Active Medications ciprofloxacin 500 mg oral tablet 500 mg=1 tab, PO, Q12H, X 7 day, # 14 tab, 0 Refill(s) Start Date: 03/04/18 Stop Date: 03/11/18 Status: Ordered Flagyl 500 mg oral tablet 500 mg=1 tab, PO, Q8H, X 7 day, # 21 tab, 0 Refill(s) Start Date: 03/04/18 Stop Date: 03/11/18 Status: Ordered GI cocktail 30 mL, Route: PO, Dosing Weight 74.091, kg, ONCE, STAT, Start date: 03/04/18 8:3 1:00 CDT, Stop date: 03/04/18 8:31:00 CDT Start Date: 03/04/18 Stop Date: 03/04/18 Status: Completed morphine Sulfate 2 mg, 0.5 mL, Route: IVP, Drug form: SOLN, ONCE, Dosing Weight 74.091, kg, Prior ity: STAT, Start date: 03/04/18 8:45:00 CDT, Stop date: 03/04/18 8:45:00 CDT Notes: (Same as:MORPhine Sulfate) Start Date: 03/04/18 Stop Date: 03/04/18 Status: Completed morphine Sulfate 4 mg, Route: IVP, ONCE, Dosing Weight 74.091, kg, Priority: STAT, Start date: 12:47:00 CDT, Stop date: 03/04/18 12:47:00 CDT Start Date: 03/04/18 Stop Date: 03/04/18 Status: Completed Pepcid 40 mg, Route: PO, ONCE, Dosing Weight 74.091, kg, Start date: 03/04/18 8:31:00 C DT, Stop date: 03/04/18 8:31:00 CDT Start Date: 03/04/18 Stop Date: 03/04/18 Status: Completed tramadol 50 mg oral tablet 50 mg=1 tab, PO, Q6H, PRN Pain, not to exceed 400 mg/day take for breakthrough pain, X 10 day, # 20 tab, 0 Refill(s) Start Date: 03/04/18 Stop Date: 03/14/18 Status: Ordered Results ELECTROLYTES Most recent to 1 2 oldest [Reference Range]: Sodium Lvl [135-145 138 mEq/L mEq/L] (03/04/18 8:52 AM) Potassium Lvl 3.9 mEq/L [3.5-5.1 mEq/L] (03/04/18 8:52 AM) Chloride Lvl [95-109 105 mEq/L mEq/L] (03/04/18 8:52 AM) CO2 [24-32 mEq/L] 24 mEq/L (03/04/18 8:52 AM) AGAP [10.0-20.0 12.9 mEq/L mEq/L] (03/04/18 8:52 AM) CHEM PANEL Most recent to 1 2 oldest [Reference Range]: Creatinine Lvl 0.89 mg/dL [0.50-1.40 mg/dL] (03/04/18 8:52 AM) eGFR 67 mL/min/1.73m2 1 *NA* (03/04/18 8:52 AM) BUN [7-22 mg/dL] 19 mg/dL (03/04/18 8:52 AM) B/C Ratio [6-25] 21 (03/04/18 8:52 AM) Glucose Lvl [70-99 249 mg/dL mg/dL] *HI* (03/04/18 8:52 AM) Total Protein 6.9 g/dL [6.4-8.4 g/dL] (03/04/18 8:52 AM) Albumin Lvl [3.5-5.0 3.3 g/dL g/dL] *LOW* (03/04/18 8:52 AM) Globulin [2.7-4.2 3.6 g/dL g/dL] (03/04/18 8:52 AM) A/G Ratio [0.7-1.6] 0.9 (03/04/18 8:52 AM) Calcium Lvl 8.8 mg/dL [8.5-10.5 mg/dL] (03/04/18 8:52 AM) ALT [0-65 unit/L] 24 unit/L (03/04/18 8:52 AM) AST [0-37 unit/L] 10 unit/L (03/04/18 8:52 AM) Alk Phos [39-136 83 unit/L unit/L] (03/04/18 8:52 AM) Bili Total [0.2-1.3 0.7 mg/dL mg/dL] (03/04/18 8:52 AM) 1Result Comment: The eGFR is calculated using [...] be mul tiplied by the estimated BMI. CARDIAC ENZYMES Most recent to 1 2 oldest [Reference Range]: Troponin-I <0.02 ng/mL <0.02 ng/mL [0.00-0.40 ng/mL] (03/04/18 12:59 PM) (03/04/18 8:52 AM) HEMATOLOGY Most recent to 1 2 oldest [Reference Range]: WBC [3.7-10.4 K/CMM] 8.0 K/CMM (03/04/18 8:52 AM) RBC [4.20-5.40 3.90 M/CMM M/CMM] *LOW* (03/04/18 8:52 AM) Hgb [12.0-16.0 g/dL] 11.5 g/dL *LOW* (03/04/18 8:52 AM) Hct [36.0-48.0 %] 33.6 % *LOW* (03/04/18 8:52 AM) MCV [80.0-98.0 fL] 86.1 fL (03/04/18 8:52 AM) MCH [27.0-31.0 pg] 29.4 pg (03/04/18 8:52 AM) MCHC [32.0-36.0 34.2 g/dL g/dL] (03/04/18 8:52 AM) RDW [11.5-14.5 %] 13.1 % (03/04/18 8:52 AM) MPV [7.4-10.4 fL] 8.2 fL (03/04/18 8:52 AM) Platelet [133-450 218 K/CMM K/CMM] (03/04/18 8:52 AM) Segs [45.0-75.0 %] 55.3 % (03/04/18 8:52 AM) Lymphocytes 29.0 % [20.0-40.0 %] (03/04/18 8:52 AM) Monocytes [2.0-12.0 9.2 % %] (03/04/18 8:52 AM) Eosinophils [0.0-4.0 5.7 % %] *HI* (03/04/18 8:52 AM) Basophils [0.0-1.0 0.8 % %] (03/04/18 8:52 AM) Segs-Bands # 4.4 K/CMM [1.5-8.1 K/CMM] (03/04/18 8:52 AM) Lymphocytes # 2.3 K/CMM [1.0-5.5 K/CMM] (03/04/18 8:52 AM) Monocytes # [0.0-0.8 0.7 K/CMM K/CMM] (03/04/18 8:52 AM) Eosinophils # 0.5 K/CMM [0.0-0.5 K/CMM] (03/04/18 8:52 AM) Basophils # [0.0-0.2 0.1 K/CMM K/CMM] (03/04/18 8:52 AM) PT [12.0-14.7 13.8 seconds seconds] (03/04/18 8:52 AM) INR [0.85-1.17] 1.06 (03/04/18 8:52 AM) Immunizations Given and Recorded Vaccine Date Status [...] Reg Smoking Cessation Counseling No entered on: 03/04/18 Assessment and Plan No data available for this section
--- OUTSIDE RECORDS SUMMARY | 2018-08-10 13:30 | XMS REPORT | Summary of Care ---
Author Author [facility] Organization [facility] Address Unknown Phone Unavailable Encounter HQ Jake(FIN) [id number] Date(s): 03/04/18 - 03/04/18 [facility] [address] [place] [address]- Encounter Diagnosis Back pain (Discharge Diagnosis) - 03/04/18 Colitis (Discharge Diagnosis) - 03/04/18 Discharge Disposition: Home or Self Care Attending Physician: Mahendra Caldwell MD Vital Signs 1 2 3 [...]
--- OUTSIDE RECORDS SUMMARY | 2018-08-10 13:30 | XMS REPORT | Summary of Care ---
Author Author [facility] Organization [facility] Address Unknown Phone Unavailable Encounter ARSH Joseph(EVETTE) [id number] Date(s): 07/19/15 - 07/20/15 [facility] [address] [place] [address]- [phone] Discharge Disposition: Home Attending Physician: Brad Vasquez MD Admitting Physician: Brad Vasquez MD Vital Signs 1 2 3 Most recent to oldest [Reference Range]: 152.4 cm (07/20/15 3:15 AM) 152.4 cm (07/19/15 9:53 PM) Height 1 2 3 Most recent to oldest [Reference Range]: 98.3 DegF (07/20/15 3:30 PM) 98.3 DegF (07/20/15 11:15 AM) 98.0 DegF (07/20/15 7:39 AM) Temperature Oral [96.4-99.1 DegF] 1 2 3 Most recent to oldest [Reference Range]: 146/74 mmHg *HI* (07/20/15 3:30 PM) 146/78 mmHg *HI* (07/20/15 11:15 AM) 127/67 mmHg (07/20/15 7:39 AM) Blood Pressure [90-140/60-90 mmHg] 1 2 3 Most recent to oldest [Reference Range]: 18 BRMIN (07/20/15 3:30 PM) 18 BRMIN (07/20/15 11:15 AM) 18 BRMIN (07/20/15 7:39 AM) Respiratory Rate [14-20 BRMIN] 1 2 3 Most recent to oldest [Reference Range]: 61 bpm (07/20/15 3:30 PM) 71 bpm (07/20/15 11:15 AM) 53 bpm *LOW* (07/20/15 7:39 AM) Peripheral Pulse Rate [60-100 bpm] 1 2 3 Most recent to oldest [Reference Range]: 73.722 kg (07/20/15 3:15 AM) 75 kg (07/19/15 9:53 PM) Weight 1 2 3 Most recent to oldest [Reference Range]: 31.74 m2 (07/20/15 3:15 AM) 32.29 m2 (07/19/15 9:53 PM) Body Mass Index Problem List Condition Effective Dates Status Health Status Informant Adrenal Active abnormality(Confirme d) Asthma(Confirmed) Active Breast Resolved cancer(Confirmed) Diabetes(Confirmed) Active Hepatitis Resolved A(Confirmed) HTN - Active Hypertension(Confirm ed) Osteoporosis(Confirm Active ed) Stent Resolved placement(Confirmed) Allergies, Adverse Reactions, Alerts Substance Reaction Severity Status NKDA Active Medications alendronate 70 mg, PO, qWeek, on wednesdays, 0 Refill(s) Special Instructions: on wednesdays Start Date: 07/20/15 Status: Ordered amLODIPine 10 mg, PO, Daily, 0 Refill(s) Start Date: 07/20/15 Status: Ordered amLODIPine 10 mg, 2 tab, Route: PO, Drug form: TAB, Daily, Dosing Weight 73.722, kg, Start date: 07/20/15 9:00:00, Duration: 30 day, Stop date: 08/18/15 9:00:00 Notes: (Same as: Norvasc) Start Date: 07/20/15 Stop Date: 07/20/15 Status: Discontinued anastrozole 1 mg, PO, Daily, 0 Refill(s) Start Date: 07/20/15 Status: Ordered anastrozole 1 mg, 1 tab, Route: PO, Drug form: TAB, Daily, Dosing Weight 73.722, kg, Start d ate: 07/20/15 9:00:00, Duration: 30 day, Stop date: 08/18/15 9:00:00 Notes: (Same as: Arimidex)Chemotherapy agent/Handle with caution Start Date: 07/20/15 Stop Date: 07/20/15 Status: Discontinued aspirin 324 mg, Route: CHEW, Drug form: CHEWTAB, ONCE, Dosing Weight 75, kg, Priority: S TAT, Start date: 07/20/15 0:05:00, Stop date: 07/20/15 0:05:00 Start Date: 07/20/15 Stop Date: 07/20/15 Status: Completed aspirin 81 mg, PO, Daily, 0 Refill(s) Start Date: 07/20/15 Status: Ordered aspirin 81 mg tablet, enteric coated 81 mg, 1 tab, Route: PO, Drug form: ECTAB, Daily, Dosing Weight 73.722, kg, Star t date: 07/20/15 9:00:00, Duration: 30 day, Stop date: 08/18/15 9:00:00 Notes: Do not crush or chew.(Same As: Ecotrin) Start Date: 07/20/15 Stop Date: 07/20/15 Status: Discontinued atorvastatin 80 mg, PO, Bedtime, 0 Refill(s) Start Date: 07/20/15 Status: Ordered atorvastatin 80 mg, 2 tab, Route: PO, Drug form: TAB, Bedtime, Dosing Weight 73.722, kg, Star t date: 07/20/15 21:00:00, Duration: 30 day, Stop date: 08/18/15 21:00:00 Notes: (Same as: Lipitor) Start Date: 07/20/15 Stop Date: 07/20/15 Status: Canceled atropine 0.5 mg, 5 mL, Route: IVP, Drug form: INJ, PRN, PRN Bradycardia, Start date: 06/27 03/09 3:34:00, Duration: 30 day, Stop date: 08/19/15 3:33:00 Start Date: 07/20/15 Stop Date: 07/20/15 Status: Discontinued Dextrose 50% Syringe 12.5 gm, 25 mL, Route: IVP, Drug Form: INJ, Dosing Weight 73.722, kg, PRN, PRN B lood Glucose Results, Start date: 07/20/15 3:50:00, Duration: 30 day, Stop date: 08/19/15 3:49:00 Start Date: 07/20/15 Stop Date: 07/20/15 Status: Discontinued Dextrose 50% Syringe 25 gm, 50 mL, Route: IVP, Drug Form: INJ, Dosing Weight 73.722, kg, PRN, PRN Blo od Glucose Results, Start date: 07/20/15 3:50:00, Duration: 30 day, Stop date: 1 3:49:00 Start Date: 07/20/15 Stop Date: 07/20/15 Status: Discontinued esomeprazole 20 mg, Daily, 0 Refill(s) Start Date: 07/20/15 Status: Ordered glipiZIDE 10 mg, PO, BID, hold if blood sugar<100, 0 Refill(s) Special Instructions: hold if blood sugar<100 Start Date: 07/20/15 Status: Ordered glipiZIDE 10 mg, 1 tab, Route: PO, Drug form: TAB, BID-Meals, Dosing Weight 73.722, kg, St art date: 07/20/15 9:00:00, Duration: 30 day, Stop date: 08/19/15 8:00:00 Notes: (Same as: Glucotrol) 30 min before meals. Start Date: 07/20/15 Stop Date: 07/20/15 Status: Discontinued glucagon 1 mg, Route: IM, Drug form: PDR/INJ, PRN, Dosing Weight 73.722, kg, PRN Blood Gl ucose Results, Start date: 07/20/15 3:50:00, Duration: 30 day, Stop date: 3:49:00 Start Date: 07/20/15 Stop Date: 07/20/15 Status: Discontinued Humalog SUB-Q, TID-Before Meals, depends on blood sugar, 0 Refill(s) Special Instructions: depends on blood sugar Start Date: 07/20/15 Status: Ordered influenza virus vaccine, inactivated 0.5 mL, Route: IM, Drug Form: SUSP, Daily, Start date: 07/20/15 9:00:00, Nnekao n: 1 doses or times, Stop date: 07/20/15 9:00:00 Notes: (Same as: Fluzone Quadrivalent)For 3 years of age and older (0.5 mL IM)Sh janet well before use Start Date: 07/20/15 Stop Date: 07/20/15 Status: Completed insulin aspart 5 unit, 0.05 mL, Route: SUB-Q, Drug form: SOLN, TID-Before Meals, Dosing Weight 73.722, kg, PRN Blood Glucose Results, Start date: 07/20/15 3:50:00, Duration: 3 0 day, Stop date: 08/19/15 3:49:00 Notes: Roll in palms of hands gently; Do not shake vigorously. (Same as: NovoLO G)"single patient use only" Stable for 28 days at room temperature.Expires in _ ____ days from Date Start Date: 07/20/15 Stop Date: 07/20/15 Status: Discontinued insulin aspart 4 unit, 0.04 mL, Route: SUB-Q, Drug form: SOLN, TID-Before Meals, Dosing Weight 73.722, kg, PRN Blood Glucose Results, Start date: 07/20/15 3:50:00, Duration: 3 0 day, Stop date: 08/19/15 3:49:00 Notes: Roll in palms of hands gently; Do not shake vigorously. (Same as: NovoLO G)"single patient use only" Stable for 28 days at room temperature.Expires in _ ____ days from Date Start Date: 07/20/15 Stop Date: 07/20/15 Status: Discontinued insulin aspart 3 unit, 0.03 mL, Route: SUB-Q, Drug form: SOLN, TID-Before Meals, Dosing Weight 73.722, kg, PRN Blood Glucose Results, Start date: 07/20/15 3:50:00, Duration: 3 0 day, Stop date: 08/19/15 3:49:00 Notes: Roll in palms of hands gently; Do not shake vigorously. (Same as: NovoLO G)"single patient use only" Stable for 28 days at room temperature.Expires in _ ____ days from Date Start Date: 07/20/15 Stop Date: 07/20/15 Status: Discontinued insulin aspart 2 unit, 0.02 mL, Route: SUB-Q, Drug form: SOLN, TID-Before Meals, Dosing Weight 73.722, kg, PRN Blood Glucose Results, Start date: 07/20/15 3:50:00, Duration: 3 0 day, Stop date: 08/19/15 3:49:00 Notes: Roll in palms of hands gently; Do not shake vigorously. (Same as: NovoLO G)"single patient use only" Stable for 28 days at room temperature.Expires in _ ____ days from Date Start Date: 07/20/15 Stop Date: 07/20/15 Status: Discontinued insulin aspart 1 unit, 0.01 mL, Route: SUB-Q, Drug form: SOLN, TID-Before Meals, Dosing Weight 73.722, kg, PRN Blood Glucose Results, Start date: 07/20/15 3:50:00, Duration: 3 0 day, Stop date: 08/19/15 3:49:00 Notes: Roll in palms of hands gently; Do not shake vigorously. (Same as: NovoLO G)"single patient use only" Stable for 28 days at room temperature.Expires in _ ____ days from Date Start Date: 07/20/15 Stop Date: 07/20/15 Status: Discontinued isosorbide mononitrate 10 mg, 1 tab, Route: PO, Drug form: TAB, BID, Dosing Weight 75, kg, PRN Hyperten lit, Start date: 07/20/15 2:53:00, Duration: 30 day, Stop date: 08/19/15 2:52:0 0 Notes: (Same as:Monoket) Take on empty stomach/ full glass of water Start Date: 07/20/15 Stop Date: 07/20/15 Status: Discontinued Lantus See Instructions, SUB-Q Daily, 0 Refill(s), 30 units Special Instructions: SUB-Q Daily Start Date: 07/20/15 Status: Ordered losartan 100 mg, 2 tab, Route: PO, Drug form: TAB, BID, Dosing Weight 73.722, kg, Start d ate: 07/20/15 9:00:00, Duration: 30 day, Stop date: 08/18/15 17:00:00 Notes: (Same as: Dev) Start Date: 07/20/15 Stop Date: 07/20/15 Status: Discontinued losartan 100 mg oral tablet 100 mg=1 tab, PO, BID, # 90 tab, 1 Refill(s) Start Date: 07/20/15 Status: Ordered losartan 100 mg oral tablet 100 mg=1 tab, PO, Daily, # 30 tab, 0 Refill(s) Start Date: 07/20/15 Stop Date: 07/20/15 Status: Discontinued metFORMIN 500 mg, 1 tab, Route: PO, Drug form: TAB, TID, Dosing Weight 73.722, kg, Start d ate: 07/20/15 9:00:00, Duration: 30 day, Stop date: 08/18/15 17:00:00 Notes: (Same as: Glucophage) Take with meal Start Date: 07/20/15 Stop Date: 07/20/15 Status: Discontinued metFORMIN 500 mg, PO, TID, 0 Refill(s) Start Date: 07/20/15 Status: Ordered metoprolol tartrate 100 mg, 2 tab, Route: PO, Drug form: TAB, BID, Dosing Weight 73.722, kg, Start d ate: 07/20/15 9:00:00, Duration: 30 day, Stop date: 08/18/15 21:00:00 Notes: (Same as: Lopressor) Start Date: 07/20/15 Stop Date: 07/20/15 Status: Discontinued metoprolol tartrate 100 mg, PO, BID, 0 Refill(s) Start Date: 07/20/15 Status: Ordered metoprolol tartrate BID, 0 Refill(s) Start Date: 07/20/15 Stop Date: 07/20/15 Status: Discontinued metoprolol tartrate BID, 0 Refill(s) Start Date: 07/20/15 Stop Date: 07/20/15 Status: Discontinued morphine Sulfate 2 mg, 1 mL, Route: IVP, Drug form: INJ, Q15Min, Dosing Weight 73.722, kg, PRN Ch est Pain, Start date: 07/20/15 3:47:00, Duration: 2 doses or times, Stop date: L imited # of times Notes: (Same as:MORPhine Sulfate) Start Date: 07/20/15 Stop Date: 07/20/15 Status: Discontinued nitroglycerin 0.4 mg sublingual tablet 0.4 mg, 1 tab, Route: SL, Drug form: TAB, Q5Min, PRN Chest Pain, Start date: 3:34:00, Duration: 30 day, Stop date: 08/19/15 3:33:00 Notes: (Same as:Nitroquick, Nitrostat)"Do Not Crush" Sublingual tablet Start Date: 07/20/15 Stop Date: 07/20/15 Status: Discontinued nitroglycerin SL Tab 0.4 mg, Route: SL, ONCE, Dosing Weight 75, kg, Start date: 07/20/15 0:06:00, Sto p date: 07/20/15 0:06:00 Start Date: 07/20/15 Stop Date: 07/20/15 Status: Completed nitroglycerin SL Tab 0.4 mg, 1 tab, Route: SL, Drug form: TAB, Q5Min, Dosing Weight 73.722, kg, PRN C hest Pain, Start date: 07/20/15 3:47:00, Duration: 3 doses or times, Stop date: Limited # of times Notes: (Same as:Nitroquick, Nitrostat)"Do Not Crush" Sublingual tablet Start Date: 07/20/15 Stop Date: 07/20/15 Status: Discontinued Saline Flush 0.9% 10 ml, Route: IVP, Drug Form: INJ, Dosing Weight 73.722, kg, PRN, PRN Line Flush , Start date: 07/20/15 3:47:00, Duration: 30 day, Stop date: 08/19/15 3:46:00 Notes: (Same as: BD Posiflush) Start Date: 07/20/15 Stop Date: 07/20/15 Status: Discontinued Saline Flush 0.9% 10 ml, Route: IVP, Drug Form: INJ, Dosing Weight 73.722, kg, Q12H, Start date: 0 07/20/15 9:00:00, Duration: 30 day, Stop date: 08/18/15 21:00:00 Notes: (Same as: BD Posiflush) Start Date: 07/20/15 Stop Date: 07/20/15 Status: Discontinued Saline Flush 0.9% 10 mL, Route: IVP, Drug Form: INJ, Dosing Weight 75, kg, PRN, PRN Line Flush, St art date: 07/19/15 23:35:00, Duration: 30 day, Stop date: 08/18/15 23:34:00 Notes: (Same as: BD Posiflush) Start Date: 07/19/15 Stop Date: 07/20/15 Status: Discontinued spironolactone 25 mg, 1 tab, Route: PO, Drug form: TAB, Daily, Dosing Weight 73.722, kg, Start date: 07/20/15 9:00:00, Duration: 30 day, Stop date: 08/18/15 9:00:00 Notes: (Same As: Aldactone) Start Date: 07/20/15 Stop Date: 07/20/15 Status: Discontinued spironolactone 25 mg oral tablet 25 mg=1 tab, PO, Daily, hold if spb<110, # 90 tab, 1 Refill(s) Special Instructions: hold if spb<110 Start Date: 07/20/15 Stop Date: 10/18/15 Status: Ordered triamterene See Instructions, triamterene 37.5mg/hctz 25mg 1 tab daily po., 0 Refill(s) Special Instructions: triamterene 37.5mg/hctz 25mg1 tab daily po. Start Date: 07/20/15 Status: Ordered Results ELECTROLYTES 1 2 3 Most recent to oldest [Reference Range]: 137 mEq/L (07/19/15 11:59 PM) Sodium Lvl [135-145 mEq/L] 4.1 mEq/L (07/19/15 11:59 PM) Potassium Lvl [3.5-5.1 mEq/L] 105 mEq/L (07/19/15 11:59 PM) Chloride Lvl [95-109 mEq/L] 26 mEq/L (07/19/15 11:59 PM) CO2 [24-32 mEq/L] 10.1 mEq/L (07/19/15 11:59 PM) AGAP [10.0-20.0 mEq/L] CHEM PANEL 1 2 3 Most recent to oldest [Reference Range]: 1.0 mg/dL (07/19/15 11:59 PM) Creatinine Lvl [0.5-1.4 mg/dL] 60 mL/min/1.73m2 1 *NA* (07/19/15 11:59 PM) eGFR 22 mg/dL (07/19/15 11:59 PM) BUN [7-22 mg/dL] 22 (07/19/15 11:59 PM) B/C Ratio [6-25] 123 mg/dL *HI* (07/19/15 11:59 PM) Glucose Lvl [70-99 mg/dL] 7.8 g/dL (07/19/15 11:59 PM) Total Protein [6.4-8.4 g/dL] 4.2 g/dL (07/19/15 11:59 PM) Albumin Lvl [3.5-5.0 g/dL] 3.6 g/dL (07/19/15 11:59 PM) Globulin [2.0-4.0 g/dL] 1.2 (07/19/15 11:59 PM) A/G Ratio [0.7-1.6] 9.9 mg/dL (07/19/15 11:59 PM) Calcium Lvl [8.5-10.5 mg/dL] 54 unit/L (07/19/15 11:59 PM) ALT [0-65 unit/L] 35 unit/L (07/19/15 11:59 PM) AST [0-37 unit/L] 65 unit/L (07/19/15 11:59 PM) Alk Phos [39-136 unit/L] 0.7 mg/dL (07/19/15 11:59 PM) Bili Total [0.2-1.3 mg/dL] 1Result Comment: The [...] tiplied by the estimated BMI. CARDIAC ENZYMES 1 2 3 Most recent to oldest [Reference Range]: 67 unit/L (07/20/15 11:45 AM) 52 unit/L (07/20/15 5:56 AM) 89 unit/L (07/19/15 11:59 PM) Total CK [12-191 unit/L] 2.2 ng/mL (07/19/15 11:59 PM) CK MB [0.5-3.6 ng/mL] 2.5 (07/19/15 11:59 PM) CK MB Index [0.0-2.5] <0.02 ng/mL (07/20/15 11:45 AM) <0.02 ng/mL (07/20/15 5:56 AM) <0.02 ng/mL (07/19/15 11:59 PM) Troponin-I [0.00-0.40 ng/mL] 28 pg/mL (07/19/15 11:59 PM) BNP [<=100 pg/mL] HEMATOLOGY 1 2 3 Most recent to oldest [Reference Range]: 7.2 K/CMM (07/19/15 11:59 PM) WBC [3.7-10.4 K/CMM] 4.55 M/CMM (07/19/15 11:59 PM) RBC [4.20-5.40 M/CMM] 13.5 g/dL (07/19/15 11:59 PM) Hgb [12.0-16.0 g/dL] 39.7 % (07/19/15 11:59 PM) Hct [36.0-48.0 %] 87.3 fL (07/19/15 11:59 PM) MCV [80.0-98.0 fL] 29.6 pg (07/19/15 11:59 PM) MCH [27.0-31.0 pg] 34.0 g/dL (07/19/15 11:59 PM) MCHC [32.0-36.0 g/dL] 13.4 % (07/19/15 11:59 PM) RDW [11.5-14.5 %] 221 K/CMM (07/19/15 11:59 PM) Platelet [133-450 K/CMM] 8.3 fL (07/19/15 11:59 PM) MPV [7.4-10.4 fL] 43.9 % *LOW* (07/19/15 11:59 PM) Segs [45.0-75.0 %] 40.7 % *HI* (07/19/15 11:59 PM) Lymphocytes [20.0-40.0 %] 9.1 % (07/19/15 11:59 PM) Monocytes [2.0-12.0 %] 5.0 % *HI* (07/19/15 11:59 PM) Eosinophils [0.0-4.0 %] 1.3 % *HI* (07/19/15 11:59 PM) Basophils [0.0-1.0 %] 3.2 K/CMM (07/19/15 11:59 PM) Segs-Bands # [1.5-8.1 K/CMM] 2.9 K/CMM (07/19/15 11:59 PM) Lymphocytes # [1.0-5.5 K/CMM] 0.7 K/CMM (07/19/15 11:59 PM) Monocytes # [0.0-0.8 K/CMM] 0.4 K/CMM (07/19/15 11:59 PM) Eosinophils # [0.0-0.5 K/CMM] 0.1 K/CMM (07/19/15 11:59 PM) Basophils # [0.0-0.2 K/CMM] 13.0 seconds (07/19/15 11:59 PM) PT [12.0-14.7 seconds] 0.95 (07/19/15 11:59 PM) INR [0.85-1.17] 25.5 seconds (07/19/15 11:59 PM) PTT [22.9-35.8 seconds] Immunizations Vaccine Date Refusal Reason influenza virus vaccine, inactivated 07/20/15 Procedures Procedure Date Related Diagnosis Body Site Cholecystectomy Lumpectomy of breast1 Partial mastectomy2 Stent placement 1right 2right Social History Social History Type Response Smoking Status Never smoker; Exposure to Tobacco Smoke None; Cigarette Smoking Last 365 Days No; Reg Smoking Cessation Counseling No Assessment and Plan No data available for this section
--- OUTSIDE RECORDS SUMMARY | 2018-08-10 13:30 | XMS REPORT | Summary of Care ---
Author Author [facility] Organization [facility] Address Unknown Phone Unavailable Encounter HQ Kalyani_juliana(FIN) [id number] Date(s): 09/28/17 - 09/28/17 [facility] [address] [place] [address]- [phone] Discharge Disposition: Home or Self Care Attending Physician: Mikal Hagan MD Referring Physician: Mikal Hagan MD Vital Signs No data available for [...]
--- OUTSIDE RECORDS SUMMARY | 2018-08-10 13:30 | XMS REPORT ---
Author Author [facility] Address Unknown Phone Unavailable Care Team Providers Care Director [employer] Name Role Phone Ivis HENDERSON Unavailable Unavailable Erin GARIBAY Unavailable Unavailable Payers Payer Name Policy Type Policy Number Effective Date Expiration Date Problems This patient has no known problems. Allergies, Adverse Reactions, Alerts Allergy Name Allergy Type Status Severity Reaction(s) Onset Date Inactive Date Treating Clinician Comments No Known Allergies DA Active U 2018-06-28 00:00:00 No Known Allergies DA Active U 2018-02-16 00:00:00 Medications This patient has no known medications. Results Test Description Test Time Test Comments Text Results Atomic Results Result Comments [address] 2018-08-06 15:22:00 [place] [address] Patient Name: DEVENDRA BANGURA MR #: [id number] : 1950 Age/Sex: 67/F Req #: [id number] [facility] Physician: Ordered by: LYNN HENDERSON MD Report #: [id number] Location: [facility] Room/Bed: Procedure: [id number] HOP[facility]/ANKLE 3VIEW LT - [facility] Exam Date: Exam Time: REPORT STATUS: Signed LEFT FOOT X-RAY - 3 VIEWS, LEFT ANKLE X-RAY-3 VIEWS HISTORY: Left hip pain for 4 days, no trauma, COMPARISON: None available. FINDINGS: Bones: No acute displaced fracture. Osseous alignment is within normal limits. Joints: The joint spaces are well-maintained. Soft tissues: Calcaneal enthesopathic measuring 0.7 x 0.5 cm. IMPRESSION: No acute radiographic abnormality. Large calcaneal enthesophyte may relate to this patient pain. Signed by: Dr. Carole New M.D. on 08/06/2018 3:25 PM Dictated By: CAROLE NEW MD 1525 Transcribed By: NANO on 08/06/18 1525 COPY TO: LYNN HENDERSON MD FOOT 3 VIEW - [facility] 2018-08-06 15:22:00 [place] [address] Patient Name: DEVENDRA BANGURA MR #: [id number] : 1950 Age/Sex: 67/F Req #: [id number] [facility] Physician: Ordered by: LYNN HENDERSON MD Report #: [id number] Location: [facility] Room/Bed: Procedure: [id number] HOPD/FOOT 3 VIEW LT - [facility] Exam Date: 08/06/18 Exam Time: 1430 REPORT STATUS: Signed LEFT FOOT X-RAY - 3 VIEWS, LEFT ANKLE X-RAY-3 VIEWS HISTORY: Left hip pain for 4 days, no trauma, COMPARISON: None available. FINDINGS: Bones: No acute displaced fracture. Osseous alignment is within normal limits. Joints: The joint spaces are well-maintained. Soft tissues: Calcaneal enthesopathic measuring 0.7 x 0.5 cm. IMPRESSION: No acute radiographic abnormality. Large calcaneal enthesophyte may relate to this patient pain. Signed by: Dr. Carole New M.D. on 08/06/2018 3:25 PM Dictated By: CAROLE NEW MD 1525 Transcribed By: NANO on 08/06/18 1525 COPY TO: LYNN HENDERSON MD C SPINE 2--3 VEWS - [facility] 2018-07-01 02:20:00 [place] [address] Patient Name: DEVENDRA BANGURA MR #: [id number] : 1950 Age/Sex: 67/F Req #: [id number] Adm Physician: Ordered by: BEATRICE GARIBAY MD Report #: [id number] Location: [facility] Room/Bed: Procedure: [id number] HOPD/C SPINE 2--3 VEWS - [facility] Exam Date: Exam Time: REPORT STATUS: Signed C SPINE 2--3 VEWS - HOPD Comparison: None Clinical history: Mid cervical neck pain for months, arthritis Findings: Visualization through C6 on lateral view. Moderate mid cervical facet arthrosis and likely uncovertebral hypertrophy. Anterior disc osteophyte at C5-6. About 1 to 2 mm retrolisthesis of C3 on C4, 2 to 3 mm anterior listhesis of C4 on C5. Vertebral body heights and disc spaces are preserved. Impression: Moderate degenerative changes with mild multilevel listheses. Signed by: Dr Alexey Almeida MD on 07/01/2018 2:24 AM Dictated By: ALEXEY ALMEIDA MD 3 Transcribed By: NANO on 07/01/18223 COPY TO: BEATRICE GARIBAY MD
== END 2018-08-06 16:45 | disposition home or self-care (01) ==
LOC: FSED 12:58
DX: M79.672 Pain in left foot (principal); I10 Essential (primary) hypertension; I25.119 Atherosclerotic heart disease of native coronary artery with unspecified angina pectoris; E11.9 Type 2 diabetes mellitus without complications; I25.10 Atherosclerotic heart disease of native coronary artery without angina pectoris; Z95.5 Presence of coronary angioplasty implant and graft; Z87.891 Personal history of nicotine dependence
CPT/HCPCS: 99283

== ENCOUNTER 2018-09-15 16:07 | Emergency (ER) | payer MEDICARE ==
[~2018-09-15] VITALS: Ht 149.9 cm; Wt 72.6 kg
[~2018-09-15 16:07] MED LIST: ASPIR 8181 MG PO; ATORVASTATIN CA20 MG PO; CARVEDILOL12.5 MG PO; CLONIDINE HCL0.1 MG PO; HUMULIN-R100 UNITS/; LANTUS 3ML100 UNITS/ SQ; LOSARTAN POTAS100 MG PO; NIFEDIPINE ER30 M1 PEG; OMEPRAZOLE40 MG PO; PLAVIX75 MG PO; TRIAMTERENE-HCTZ1 EA PO; ULTRAM 50MG50 MG PO
--- OUTSIDE RECORDS SUMMARY | 2018-09-15 16:10 | XMS REPORT | Clinical Summary ---
Author Author [facility] Address Unknown Phone Unavailable Care Team Providers Care Manager Icu Name Role Phone Asked, No Pcp PCP Unavailable Allergies No Known Allergies Medications End Date Status Medication Sig Dispensed Refills Start Date 08/18/2018 gabapentin (NEURONTIN) Take 1 30 capsule 0 300 mg capsule capsule (300 8 mg total) by mouth 3 (three) times a day for 30 doses. 08/11/2018 acetaminophen-codeine Take 1 tablet 8 tablet 0 (TYLENOL WITH CODEINE #3) by mouth 8 300-30 mg per tablet every 8 (eight) hours as needed for moderate pain for up to 8 doses. Active Problems Not on file Encounters Care Team Description Date Type Specialty Kameron Sotelo, Yulia Crespo PA-C Right foot pain (Primary Dx); Hyperglycemia; Calcaneal spur of right foot 08/08/2018 Emergency Emergency Medicine after 09/14/2017 Social History Date Tobacco Use Types Packs/Day Years Used Never Smoker Smokeless Tobacco: Never Used Alcohol Use Drinks/Week oz/Week Comments No Sex Assigned at Date Recorded Not on file Industry Job Start Date Occupation Not on file Not on file Not on file Travel End Travel History Travel Start No recent travel history available. Last Filed Vital Signs Time Taken Vital Sign Reading 08/08/2018 2:45 PM CDT Blood Pressure 188/83 08/08/2018 2:45 PM CDT Pulse 74 08/08/2018 2:45 PM CDT Temperature 36.4 C (97.5 F) 08/08/2018 2:45 PM CDT Respiratory Rate 18 08/08/2018 2:45 PM CDT Oxygen Saturation 98% - Inhaled Oxygen - Concentration 08/08/2018 2:46 PM CDT Weight 71.7 kg (158 lb) 08/08/2018 2:46 PM CDT Height 149.9 cm (4' 11") 08/08/2018 2:46 PM CDT Body Mass Index 31.91 Plan of Treatment Health Maintenance Due Date Last Done Comments BREAST CANCER SCREENING 2000 COLON CANCER SCREENING 2000 SHINGRIX VACCINE (1 of 2) 2000 ZOSTER VACCINE 2010 PNEUMOCOCCAL 2015 POLYSACCHARIDE VACCINE AGE 65 AND OVER PNEUMOCOCCAL-13 2015 INFLUENZA VACCINE 05/26/2018 Procedures Comments Procedure Name Priority Date/Time Associated Diagnosis POC GLUCOSE Routine 08/08/2018 3:29 PM CDT XR ANKLE 3+ VW RIGHT STAT 08/08/2018 3:19 PM CDT XR FOOT 3+ VW RIGHT STAT 08/08/2018 3:19 PM CDT after 09/14/2017 Results * POC glucose (08/08/2018 3:29 PM CDT) POC glucose 141 (H) 65 - 99 mg/dL [facility] DEPARTMENT OF Comment: PATHOLOGY AND Meter ID: [id number] GENOMIC MEDICINE Cloth Printing Inspector: Red Madrigal Performing Organization Address City/State/Zipcode Phone Number [facility] [place] [place] [address] [place] [address] PATHOLOGY AND GENOMIC MEDICINE * XR Foot 3+ Vw Right (08/08/2018 3:19 PM CDT) Narrative Performed At EXAMINATION: [facility] XR FOOT 3VW RIGHT CLINICAL HISTORY: foot pain COMPARISON: None. FINDINGS: Mineralization is normal. Joint spaces are preserved. There is no fracture, subluxation or periosteal reaction. A small calcaneal spur is present. Minimal calcification at the insertion of the Achilles tendon is noted. IMPRESSION: No acute findings. [facility]-[id number] Procedure Note Hm Interface, Radiology Results Incoming - 08/08/2018 3:25 PM CDT EXAMINATION: XR FOOT 3 VW RIGHT CLINICAL HISTORY: foot pain COMPARISON: None. FINDINGS: Mineralization is normal. Joint spaces are preserved. There is no fracture, subluxation or periosteal reaction. A small calcaneal spur is present. Minimal calcification at the insertion of the Achilles tendon is noted. IMPRESSION: No acute findings. [facility]-[id number] Performing Organization Address City/State/Zipcode Phone Number [facility] [address] [place] [address] * XR Ankle 3+ Vw Right (08/08/2018 3:19 PM CDT) Narrative Performed At EXAMINATION: XR ANKLE 3VW RIGHT [facility] INDICATION: ankle pain COMPARISON: None IMPRESSION: No acute fracture or malalignment. No soft tissue abnormalities. [facility]-[id number] Procedure Note Hm Interface, Radiology Results Incoming - 08/08/2018 3:32 PM CDT EXAMINATION: XR ANKLE 3 VW RIGHT INDICATION: ankle pain COMPARISON: None IMPRESSION: No acute fracture or malalignment. No soft tissue abnormalities. [facility]-[id number] Performing Organization Address City[facility] Phone Number [facility] [address] [place] [address] after 09/14/2017 Insurance Payer Benefit Subscriber ID Type Phone Address Plan / Group AETNA MEDICARE AETNA xxxxxxxx HMO MEDICARE HMO/PPO [facility] Advance Directives Patient has advance care planning documents on file. For more information, sukh blood contact: Kunal Dhillon [address] [place] [address]
[2018-09-15 16:38] VITALS: BP 162/80
== END 2018-09-15 16:39 | disposition home or self-care (01) ==
LOC: FSED 16:07
DX: I10 Essential (primary) hypertension (principal)
CPT/HCPCS: 99282

== ENCOUNTER 2019-06-24 18:37 | Emergency (ER) | payer MEDICARE ==
[~2019-06-24] VITALS: Ht 149.9 cm; Wt 75.0 kg
--- OUTSIDE RECORDS SUMMARY | 2019-06-24 18:39 | XMS REPORT | Clinical Summary ---
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 11/05/2018 Discontinued (Alternate therapy) traMADol (ULTRAM) 50 mg Take 1 tablet 15 tablet 0 tablet (50 mg total) 9 by mouth every 8 (eight) hours as needed for moderate pain or severe pain for up to 10 days. 11/12/2018 acetaminophen-codeine Take 1 tablet 8 tablet 0 (TYLENOL WITH CODEINE #3) by mouth 9 300-30 mg per tablet every 6 (six) hours as needed for mild pain or moderate pain for up to 7 days. Active Problems Not on file Encounters Care Team Description Date Type Specialty Rivera Stack MD Contusion of left upper extremity, initial encounter (Primary Dx) 11/09/2018 Emergency Emergency Medicine Gino Vasquez MD Flank pain (Primary Dx) 11/05/2018 Emergency Emergency Medicine Kameron Sotelo DO Teter, Lauren Elizabeth, PA Right foot pain (Primary Dx); Hyperglycemia; Calcaneal spur of right foot 08/08/2018 Emergency Emergency Medicine after 06/23/2018 Social History Date Tobacco Use Types Packs/Day Years Used Never Smoker Smokeless Tobacco: Never Used Drinks/Week oz/Week Comments Alcohol Use No Sex Assigned at Date Recorded Not on file Industry Job Start Date Occupation Not on file Not on file Not on file Travel End Travel History Travel Start No recent travel history available. Last Filed Vital Signs Reading Time Taken Comments Vital Sign 169/78 11/09/2018 11:00 PM [facility] Blood Pressure 80 11/09/2018 11:00 PM [facility] Pulse 37.3 C (99.1 F) 11/09/2018 9:29 PM [facility] Temperature 16 11/09/2018 11:00 PM [facility] Respiratory Rate 95% 11/09/2018 11:00 PM [facility] Oxygen Saturation - - Inhaled Oxygen Concentration 72.6 kg (160 lb) 11/09/2018 9:28 PM [facility] Weight 149.9 cm (4' 11") 11/09/2018 9:28 PM [facility] Height 32.32 11/09/2018 9:28 PM [facility] Body Mass Index Plan of Treatment Health Maintenance Due Date Last Done Comments BREAST CANCER SCREENING 2000 COLONOSCOPY SCREENING 2000 SHINGLES VACCINES (#1) 2000 65+ PNEUMOCOCCAL VACCINE 2015 (1 of 2 - PCV13) INFLUENZA VACCINE 05/26/2019 Procedures Comments Procedure Name Priority Date/Time Associated Diagnosis US DUPLEX ARTERIAL UPPER STAT 11/09/2018 EXTREMITY LEFT 10:54 PM [facility] US DUPLEX VENOUS UPPER STAT 11/09/2018 EXTREMITY LEFT 10:35 PM [facility] ESTIMATED GFR STAT 11/09/2018 10:12 PM [facility] CREATINE KINASE, TOTAL STAT 11/09/2018 (CPK) 10:12 PM [facility] COMPREHENSIVE METABOLIC STAT 11/09/2018 PANEL 10:12 PM [facility] PARTIAL THROMBOPLASTIN STAT 11/09/2018 TIME (PTT) 10:12 PM [facility] PROTHROMBIN TIME WITH INR STAT 11/09/2018 10:12 PM [facility] HC COMPLETE BLD COUNT STAT 11/09/2018 W/AUTO DIFF 10:12 PM [facility] XR FOREARM 2 VW LEFT STAT 11/09/2018 9:56 PM [facility] ECG ED PRELIMINARY Routine 11/05/2018 INTERPRETATION 10:23 PM [facility] POC GLUCOSE Routine 11/05/2018 9:[address] ABDOMEN PELVIS W STAT 11/05/2018 CONTRAST 9:08 PM [facility] LIPASE LEVEL Routine 11/05/2018 8:14 PM [facility] ESTIMATED GFR Routine 11/05/2018 8:14 PM [facility] COMPREHENSIVE METABOLIC Routine 11/05/2018 PANEL 8:14 PM [facility] CREATINE KINASE, TOTAL Routine 11/05/2018 (CPK) 8:14 PM [facility] TROPONIN STAT 11/05/2018 6:47 PM [facility] URINALYSIS SCREEN AND STAT 11/05/2018 MICROSCOPY, WITH REFLEX 6:47 PM [facility] TO CULTURE PARTIAL THROMBOPLASTIN STAT 11/05/2018 TIME (PTT) 6:47 PM [facility] PROTHROMBIN TIME WITH INR STAT 11/05/2018 6:47 PM [facility] HC COMPLETE BLD COUNT STAT 11/05/2018 W/AUTO DIFF 6:47 PM [facility] URINE CULTURE STAT 11/05/2018 6:47 PM [facility] XR CHEST 1 VW PORTABLE STAT 11/05/2018 6:28 PM [facility] ECG 12-LEAD STAT 11/05/2018 6:26 PM [facility] POC GLUCOSE Routine 08/08/2018 3:29 PM CDT XR ANKLE 3+ VW RIGHT STAT 08/08/2018 3:19 PM CDT XR FOOT 3+ VW RIGHT STAT 08/08/2018 3:19 PM CDT after 06/23/2018 Results * Us duplex arterial upper extremity (11/09/2018 10:54 PM [facility]) LT AXIL PSV 151.20 cm/s [facility] LT RADIAL DIST 6.30 cm/s [facility] EDV LT RADIAL DIST 12.4 cm/s [facility] PSV LT RADIAL MIMD 6.70 cm/s [facility] EDV LT RADIAL MID 73.60 cm/s [facility] PSV LT RADIAL PROX 5.1 cm/s [facility] EDV LT RADIAL PROX 45.3 cm/s [facility] PSV LT SUB MID EDV 0.00 cm/s [facility] LT SUB MID PSV 97.90 cm/s [facility] LT SUB PROX EDV 0 cm/s [facility] LT SUB PROX PSV 159.2 cm/s [facility] L BRACH DIST 15.50 cm/sec [facility] EDV L BRACH DIST 110.80 cm/sec [facility] PSV L BRACH MID EDV 13.90 cm/sec [facility] L BRACH MID PSV 126.90 cm/sec [facility] L BRACH PROX 9 cm/sec [facility] EDV L BRACH PROX 130.2 cm/sec [facility] PSV L SUBCLAVIAN 0.00 cm/sec [facility] DIST EDV L SUBCLAVIAN 121 cm/sec [facility] DIST PSV L ULNAR DIST 17.10 cm/sec [facility] EDV L ULNAR DIST 104 cm/sec [facility] PSV L ULNAR MID EDV 18.80 cm/sec [facility] L ULNAR MID PSV 112 cm/sec [facility] L ULNAR PROX 17.6 cm/sec [facility] EDV L ULNAR PROX 104.8 cm/sec [facility] PSV Specimen Narrative Performed At [facility] There is no significant arterial occlusive disease in the left upper extremity Performing Organization Address [facility] Phone Number [facility] [address] [place] [address] * Us duplex venous upper extremity (11/09/2018 10:35 PM [facility]) Specimen Narrative Performed At [facility] There is no evidence of DVT in the left upper extremity. Performing Organization Address [facility] Phone Number [facility] [address] [place] [address] * Estimated GFR (11/09/2018 10:12 PM [facility]) Only the most recent of 2 results within the time period is included. [facility] Estimated GFR 58 (A) mL/min/1.73 m2 [facility] Comment: LATONIA [facility] rpretation G1 >=90 Normal or high G2 60-89Mildly decreased [id number] Mildly to moderately decreased [id number] Moderately to severely decreased G4 15-29Severely decreased G5 <15Kidney failure The eGFR was calculated using the Chronic Kidney Disease Epidemiology Collaboration (CKD-EPI) equation. Interpretation is based on recommendations of the National Kidney Foundation-Kidney Disease Outcomes Quality Initiative (NKF-KDOQI) published in 2014. Specimen Plasma specimen Performing Organization Address [facility] Center[facility] Phone Number [address] * Partial thromboplastin time, activated (11/09/2018 10:12 PM [facility]) Only the most recent of 2 results within the time period is included. [facility] PTT 34.7 23.0 - 36.0 sec [facility]YATT Comment: LATONIA ANTUNEZ PTT therapeutic range for [facility] unfractionated heparin is 61.0-112.0 seconds which corresponds to Anti-Xa 0.3-0.7 U/ml. Specimen Blood Performing Organization Address [facility] Phone Number [address] * Prothrombin time with INR (11/09/2018 10:12 PM [facility]) Only the most recent of 2 results within the time period is included. [facility] Prothrombin 12.7 11.5 - 14.5 sec [facility] INR 1.0 PYATT Comment: LATONIA ANTUNEZ The International Normalized [facility] Ratio (INR) is a therapeutic monitoring tool for patients who are stable on oral anticoagulant therapy. An INR of 2.0-3.0 is suggested for deep vein thrombosis/pulmonary embolism. Specimen Blood Performing Organization Address [facility] Phone Number [address] MEDICINE [facility] [id number] [place] [address] * CBC with platelet and differential (11/09/2018 10:12 PM [facility]) Only the most recent of 2 results within the time period is included. [facility] WBC 10.07 4.50 - 11.00 k/uL [facility] RBC 3.86 (L) 4.20 - 5.50 m/uL [facility] HGB 11.4 (L) 12.0 - 16.0 g/dL [facility] HCT 32.5 (L) 37.0 - 47.0 % [facility] MCV 84.2 82.0 - 100.0 fL [facility] MCH 29.5 27.0 - 34.0 pg [facility] MCHC 35.1 31.0 - 37.0 g/dL [facility] RDW - SD 36.1 (L) 37.0 - 55.0 fL [facility] MPV 9.6 8.8 - 13.2 fL [facility] Platelet count 261 150 - 400 k/uL [facility] Nucleated RBC 0.00 /100 WBC [facility] Neutrophils 67.9 39.0 - 69.0 % [facility] Lymphocytes 20.1 (L) 25.0 - 45.0 % [facility] Monocytes 7.8 0.0 - 10.0 % [facility] Eosinophils 3.1 0.0 - 5.0 % [facility] Basophils 0.9 0.0 - 1.0 % [facility] Specimen Blood Performing Organization Address City/State/Zipcode Phone Number [facility] [address] [place] [address] PATHOLOGY AND GENOMIC MEDICINE [address] * Creatine kinase, total (CPK) (11/09/2018 10:12 PM [facility]) Only the most recent of 2 results within the time period is included. [facility] Creatine kinase 52 26 - 192 U/L [facility] Specimen Plasma specimen Performing Organization Address City/[facility] Phone Number [facility] [id number] [place] [address] [place] [address] PATHOLOGY AND GENOMIC MEDICINE [address] [place] [address] [facility] * Comprehensive metabolic panel (11/09/2018 10:12 PM [facility]) Only the most recent of 2 results within the time period is included. Sodium 138 135 - 148 mEq/L [facility] Potassium 4.1 3.5 - 5.0 mEq/L [facility] Chloride 100 98 - 112 mEq/L [facility] CO2 23 (L) 24 - 31 mEq/L [facility] Anion gap 15@ANIO 7 - 15 mEq/L [facility] BUN 18 8 - 23 mg/dL [facility] Creatinine 1.00 (H) 0.50 - 0.90 mg/dL [facility] Glucose 271 (H) 65 - 99 mg/dL [facility] Calcium 9.8 8.8 - 10.2 mg/dL [facility] Protein 7.5 6.3 - 8.3 g/dL [facility] Comment: [facility] 4.6-7.0 g/dL 1 week 4.4-7.6 g/dL 7 months-1year 5.1-7.3 g/dL 1-2 years5.6-7 .5 g/dL >3 years6.0-8 .0 g/dL 18-150 6.3-8.3 g/dL Albumin 3.9 3.5 - 5.0 g/dL [facility] A/G ratio 1.1 0.7 - 3.8 [facility] Alkaline 98 35 - 104 U/L [facility] phosphatase [facility] AST 16 10 - 35 U/L [facility] ALT 17 5 - 50 U/L [facility] Total bilirubin 0.3 0.0 - 1.2 mg/dL [facility] Specimen Plasma specimen Performing Organization Address City/[facility]/Zipcode Phone Number [facility] [place] [id number] [place] [address] [place] [address] PATHOLOGY AND GENOMIC MEDICINE [facility] [id number] [place] [address] [place] [address] [facility] * XR Forearm 2 Vw Left (11/09/2018 9:56 PM [facility]) Specimen Narrative Performed At XR FOREARM 2 VW LEFT [facility] CLINICAL INDICATION:bony painforearmno history of trauma COMPARISON:None. IMPRESSION: There is no acute fracture or dislocation. There is no elbow joint effusion. The bones are demineralized. There are degenerative changes of the wrist with cysts within some of the carpal bones. [facility]-[id number] Procedure Note Hm Interface, Radiology Results Incoming - 11/09/2018 10:53 PM [facility] XR FOREARM 2 VW LEFT CLINICAL INDICATION: bony pain forearm no history of trauma COMPARISON: None. IMPRESSION: There is no acute fracture or dislocation. There is no elbow joint effusion. The bones are demineralized. There are degenerative changes of the wrist with cysts within some of the carpal bones. [facility]-[id number] Performing Organization Address [facility] Phone Number [facility] [address] [place] [address] * ECG ED Preliminary Interpretation - Not an Order (11/05/2018 10:23 PM [facility]) Narrative Performed At Kamryn Nelson NP-C 11/06/20189:37 AM ECG ED Preliminary Interpretation - Not an Order Performed by: Kamryn Nelson NP-C Authorized by: Gino Vasquez MD ECG reviewed by ED Physician in the absence of a service provider: yes Previous ECG: Previous ECG:Unavailable Interpretation: Interpretation: abnormal Rate: ECG rate:76 ECG rate assessment: normal Rhythm: Rhythm: sinus rhythm Ectopy: Ectopy: none QRS: QRS axis:Normal Conduction: Conduction: normal ST segments: ST segments:Normal T waves: T waves: normal Comments: Ant infarct age undertermined * POC glucose (11/05/2018 9:19 PM [facility]) Only the most recent of 2 results within the time period is included. POC glucose 100 (H) 65 - 99 mg/dL [facility] Comment: LATONIA [facility] Meter ID: [id number] [facility] Professor Of Marketing: Francisco Sanders Specimen Performing Organization Address City/[facility] Phone Number [facility] [place] [address] [place] [address] PATHOLOGY AND GENOMIC MEDICINE [facility] [address] [place] [address] [facility] * CT Abdomen Pelvis W Contrast (11/05/2018 9:08 PM [facility]) Specimen Narrative Performed At EXAMINATION:CT ABDOMEN PELVIS W CONTRAST [facility] CLINICAL HISTORY:ruq and rlq pain COMPARISON:None. TECHNIQUE:CT of the abdomen and pelvis with intravenous contrast. CT imaging was performed with iterative reconstruction techniques and/or automated exposure control to reduce radiation dose. FINDINGS: LOWER THORAX:There is mild left atrial enlargement. There are coronary artery calcifications.There is no pericardial effusion. There is subsegmental atelectasis/scarring in the dependent portions of both lungs.There is trace bilateral pleural thickening without significant effusion. HEPATOBILIARY:The liver appears unremarkable. Patient is status post cholecystectomy. There is no biliary ductal dilatation. SPLEEN:No splenomegaly. PANCREAS:No focal masses or ductal dilation. ADRENALS:No adrenal nodules. KIDNEYS:There is no urolithiasis.There is no hydroureter/hydronephrosis.There are scattered renal hypodensities which are too small to characterize, but likely represent cysts.There is no definite suspicious solid mass. There is no evidence of renal parenchymal infarction. PELVIC ORGANS:The urinary bladder appears unremarkable. The uterus contains multiple calcified and noncalcified fibroids. The bilateral adnexal regions appear grossly unremarkable.Multiple calcified pelvic phleboliths are present. GI TRACT:There is a small hiatal hernia. There is no gastrointestinal distention to suggest obstruction.There is no pathologic gastrointestinal wall thickening. There are a few scattered small colonic diverticula without evidence of acute diverticulitis. There is no pneumatosis intestinalis. There is increased fecal retention, suggestive of constipation.The appendix appears normal. PERITONEUM/RETROPERITONEUM:There is no free intraperitoneal air. There is no free fluid or focal drainable collection. LYMPHATIC: There is no lymphadenopathy. VESSELS: There is moderate atherosclerotic calcification of the arterial vasculature. There is no evidence of aneurysm or dissection. Patient is status post stenting of the left ostial-proximal renal artery with contrast seen in the remainder of the vessel. There is minimal ostial stenosis of the right renal artery which opacifies with contrast. There is at least mild ostial stenosis of the celiac and superior mesenteric arteries with preserved contrast opacification of the remainder of the vessels in the main branches. The inferior mesenteric artery opacifies with contrast. The portal, mesenteric, and splenic veins are patent. The hepatic veins are patent. BONES AND SOFT TISSUES:There is demineralization and degenerative change of the visualized skeleton. There is no acute or suspicious osseous abnormality. There is a tiny fat-containing umbilical hernia. There is a small fat-containing left inguinal hernia. IMPRESSION: No acute abdominal or pelvic pathology. Additional non-acute findings, as described above. [facility]-[id number] Procedure Note [facility], Radiology Results Incoming - 11/05/2018 9:21 PM [facility] EXAMINATION: CT ABDOMEN PELVIS W CONTRAST CLINICAL HISTORY: ruq and rlq pain COMPARISON: None. TECHNIQUE: CT of the abdomen and pelvis with intravenous contrast. CT imaging was performed with iterative reconstruction techniques and/or automated exposure control to reduce radiation dose. FINDINGS: LOWER THORAX: There is mild left atrial enlargement. There are coronary artery calcifications. There is no pericardial effusion. There is subsegmental atelectasis/scarring in the dependent portions of both lungs. There is trace bilateral pleural thickening without significant effusion. HEPATOBILIARY: The liver appears unremarkable. Patient is status post cholecystectomy. There is no biliary ductal dilatation. SPLEEN: No splenomegaly. PANCREAS: No focal masses or ductal dilation. ADRENALS: No adrenal nodules. KIDNEYS: There is no urolithiasis. There is no hydroureter/hydronephrosis. There are scattered renal hypodensities which are too small to characterize, but likely represent cysts. There is no definite suspicious solid mass. There is no evidence of renal parenchymal infarction. PELVIC ORGANS: The urinary bladder appears unremarkable. The uterus contains multiple calcified and noncalcified fibroids. The bilateral adnexal regions appear grossly unremarkable. Multiple calcified pelvic phleboliths are present. GI TRACT: There is a small hiatal hernia. There is no gastrointestinal distention to suggest obstruction. There is no pathologic gastrointestinal wall thickening. There are a few scattered small colonic diverticula without evidence of acute diverticulitis. There is no pneumatosis intestinalis. There is increased fecal retention, suggestive of constipation. The appendix appears normal. PERITONEUM/RETROPERITONEUM: There is no free intraperitoneal air. There is no free fluid or focal drainable collection. LYMPHATIC: There is no lymphadenopathy. VESSELS: There is moderate atherosclerotic calcification of the arterial vasculature. There is no evidence of aneurysm or dissection. Patient is status post stenting of the left ostial-proximal renal artery with contrast seen in the remainder of the vessel. There is minimal ostial stenosis of the right renal artery which opacifies with contrast. There is at least mild ostial stenosis of the celiac and superior mesenteric arteries with preserved contrast opacification of the remainder of the vessels in the main branches. The inferior mesenteric artery opacifies with contrast. The portal, mesenteric, and splenic veins are patent. The hepatic veins are patent. BONES AND SOFT TISSUES: There is demineralization and degenerative change of the visualized skeleton. There is no acute or suspicious osseous abnormality. There is a tiny fat-containing umbilical hernia. There is a small fat-containing left inguinal hernia. IMPRESSION: No acute abdominal or pelvic pathology. Additional non-acute findings, as described above. [facility]-[id number] Performing Organization Address City/[facility]/Zipcode Phone Number [facility] [address] [place] [address] * Lipase level (11/05/2018 8:14 PM [facility]) [facility] Lipase 26 13 - 60 U/L [facility] Specimen Plasma specimen Performing Organization Address City/[facility] Phone Number [place] [address] [place] [address] PATHOLOGY AND GENOMIC MEDICINE [facility] [id number] [place] [address] * Urinalysis screen and microscopy, with reflex to culture (11/05/2018 6:47 PM [facility]) Specimen site Clean catch [facility] Color, UA Straw [facility] Appearance, UA Clear [facility] Specific 1.006 1.001 - 1.035 [facility] gravity, [facility] pH, UA 7.0 5.0 - 8.5 [facility] Protein, UA Negative Negative [facility] Glucose, UA Negative Negative [facility] Ketones, UA Negative Negative [facility] Bilirubin, UA Negative Negative [facility] Blood, UA Negative Negative [facility] Nitrite, UA Negative Negative [facility] Urobilinogen, Negative <2.0 [facility] Leukocyte Negative Negative [facility] esterase, [facility] Epithelial Few /HPF SYED cells, UA [facility] WBC, UA 0-5 0 - 4 /HPF [facility] RBC, UA 0-5 0 - 5 /HPF [facility] Bacteria, UA None seen None seen [facility] Yeast, UA None seen [facility] Yeast with None seen [facility] Specimen Urine Performing Organization Address [facility] Phone Number [address] [place] [address] PATHOLOGY AND GENOMIC MEDICINE [address] * Troponin (11/05/2018 6:47 PM [facility]ER) [facility] Troponin <0.300 0.000 - 0.300 ng/mL [facility] Comment: [facility] 0.30 - 1.49 [facility] ng/mlMay indicate increased risk of acute coronary syndrome. >=1.5 ng/ml Consistent with acute myocardial infarction. The diagnostic value of a single normal or non-diagnostic result is questionable.Serial samples at 2-6 hour intervals are required to rule out acute myocardial injury. Specimen Plasma specimen Performing Organization Address [facility] Phone Number [address] [place] [address] PATHOLOGY AND [facility] MEDICINE [address] * Urine culture (11/05/2018 6:47 PM B[facility]ER) [facility] Urine culture SEE COMMENTComment: [facility] Bacteriuria screen negative. [facility] Specimen Urine Performing Organization Address [facility] Phone Number [address] [place] [address] PATHOLOGY AND GENOMIC MEDICINE [address] * XR Chest 1 Vw Portable (11/05/2018 6:28 PM [facility]) Specimen Narrative Performed At EXAMINATION: XR CHEST 1 VW PORTABLE [facility] INDICATION: epigastric pain COMPARISON: 09/15/1999 IMPRESSION: There are linear opacities in both lung bases, favored to represent atelectasis. There may be trace pleural effusions. No pneumothorax. No discrete airspace disease. Heart size within normal limits. Aortic calcifications, increased. Spondylosis. Diffuse osteopenia. Surgical clips overlie the right lateral chest wall. [facility]-[id number] Procedure Note Interface, Radiology Results Incoming - 11/05/2018 6:38 PM [facility] EXAMINATION: XR CHEST 1 VW PORTABLE INDICATION: epigastric pain COMPARISON: 09/15/1999 IMPRESSION: There are linear opacities in both lung bases, favored to represent atelectasis. There may be trace pleural effusions. No pneumothorax. No discrete airspace disease. Heart size within normal limits. Aortic calcifications, increased. Spondylosis. Diffuse osteopenia. Surgical clips overlie the right lateral chest wall. [facility]-[id number] Performing Organization Address [facility] Phone Number [facility] [address] [place] [address] * ECG 12 lead (11/05/2018 6:26 PM [facility]) Ventricular 76 [facility]USE rate Atrial rate 76 [facility] SC interval 204 [facility] QRSD interval 72 [facility] QT interval 372 [facility] QTC interval 418 [facility] P axis 1 13 [facility] QRS axis 1 -15 [facility] T wave axis -2 [facility] MUSE EKG impression Normal sinus rhythm-Anterior [facility] MUSE infarct , age undetermined-Abnormal ECG-No previous ECGs available- Specimen Narrative Performed At Performing Organization Address [facility] [place] Phone Number [facility] MUSE [address] [place] [address] * XR Foot 3+ Vw Right (08/08/2018 3:19 PM CDT) Specimen Narrative Performed At EXAMINATION: [facility] XR FOOT 3VW RIGHT CLINICAL HISTORY: foot pain COMPARISON: None. FINDINGS: Mineralization is normal. Joint spaces are preserved. There is no fracture, subluxation or periosteal reaction. A small calcaneal spur is present. Minimal calcification at the insertion of the Achilles tendon is noted. IMPRESSION: No acute findings. [facility]-[id number] Procedure Note Interface, Radiology Results Incoming - 08/08/2018 3:25 PM CDT EXAMINATION: XR FOOT 3 VW RIGHT CLINICAL HISTORY: foot pain COMPARISON: None. FINDINGS: Mineralization is normal. Joint spaces are preserved. There is no fracture, subluxation or periosteal reaction. A small calcaneal spur is present. Minimal calcification at the insertion of the Achilles tendon is noted. IMPRESSION: No acute findings. [facility]-[id number] Performing Organization Address City/State/Zipcode Phone Number [facility] [address] [place] [address] * XR Ankle 3+ Vw Right (08/08/2018 3:19 PM CDT) Specimen Narrative Performed At EXAMINATION: XR ANKLE 3VW RIGHT [facility] INDICATION: ankle pain COMPARISON: None IMPRESSION: No acute fracture or malalignment. No soft tissue abnormalities. [facility]-[id number] Procedure Note Hm Interface, Radiology Results Incoming - 08/08/2018 3:32 PM CDT EXAMINATION: XR ANKLE 3 VW RIGHT INDICATION: ankle pain COMPARISON: None IMPRESSION: No acute fracture or malalignment. No soft tissue abnormalities. [id number] Performing Organization Address City/[facility] Phone Number [facility] [address] [place] [address] after 06/23/2018 Insurance Type Payer Benefit Subscriber ID Effective Phone Address Plan / Dates Group HMO AETNA MEDICARE AETNA xxxxxxxx [id number] MEDICARE resent HMO/PPO [id number] Advance Directives For more information, please contact: [phone] Patient Inpatient Nursing Aide Explanation Type Date Recorded Advance Directives, 11/05/2018 7:19 PM Living Will and Medical Power of Hr Analyst
--- OUTSIDE RECORDS SUMMARY | 2019-06-24 18:39 | XMS REPORT | Continuity of Care Document ---
Author Author Retty Address Unknown Phone Unavailable Care Team Providers Care Mobile Application Development Lead Name Role Phone [facility] [email or web address] Information Kuddle Unavailable Unavailable Problems No Data Provided for This Section Medications Medication Details Route Status Patient Instructions Ordering Provider Order Date Source Aspirin (Aspir 81) 81 Mg Tablet. Daily [facility] Atorvastatin Calcium 20 Mg Tablet Bedtime [facility] Carvedilol 12.5 Mg Tablet Twice A Day [facility] Clonidine Hcl 0.1 Mg Tablet As Needed [facility] Clopidogrel Bisulfate (Plavix) 75 Mg Tablet Daily [facility] Insulin Glargine (Lantus 3ML Pen) 100 Units/1 Ml Inj Use As Directed [facility] Insulin Human Regular (Humulin-R 10ML Vial) 100 Units/Ml Inj Active [facility] Losartan Potassium 100 Mg Tablet Daily [facility] Nifedipine (Nifedipine Er) 30 Mg Tab.er.24 Daily [facility] Omeprazole 40 Mg Capsule.dr [place] [facility] Tramadol Hcl (Ultram 50MG*) 50 Mg Tab As Needed [facility] Triamterene/Hctz (Triamterene-Hctz 37.5-25 Mg Tb) 1 Ea Tab Daily [facility] Allergies, Adverse Reactions, Alerts No Known Medication Allergies Immunizations No Data Provided for This Section Results Order Name Results Value Reference Range Date Interpretation Comments Source Capillary blood glucose measurement by glucometer (mass/volume) 148 70 - 120 07/01/2018 [facility] Pathology Reports No Data Provided for This Section Diagnostic Reports No Data Provided for This Section Consultation Notes No Data Provided for This Section Discharge Summaries No Data Provided for This Section History and Physicals No Data Provided for This Section Vital Signs No Data Provided for This Section Encounters Location Location Details Encounter Type Encounter Number Reason For Visit Attending Provider ADM Date DC Date Status Source Departed Emergency Room [id number] BEATRICE GARIBAY MD 07/01/2018 07/01/2018 [facility] Departed Emergency Room [id number] LYNN HENDERSON MD 08/06/2018 08/06/2018 [facility] Departed Emergency Room [id number] BRANDON BLANCAS MD 09/15/2018 09/15/2018 [facility] Procedures No Data Provided for This Section Assessment and Plan No Data Provided for This Section Plan of Care Plan of Care Date Source Discharge Date 09/15/18 4:39pm Disposition HOME, SELF-CARE Condition at Discharge Stable Instructions/Education Provided Ear Pain - Adult Hypertension Prescriptions See Medication Section Referrals Lashanda Batres Additional Instructions/Education Return to the closest emergency room if symptoms worsen. Tylenol as needed for pain. Follow up with your doctor tomorrow. 09/15/2018 [facility] Social History Social History Date Source Smoking Status Start Date Stop Date Never Smoker 09/15/2018 [facility] Family History No Data Provided for This Section Advance Directives Order Name Results Value Date Source Advance Directives Advance Directives Directive Response Recorded Date/Time Does the patient have an advance directive? No 07/01/18 1:26am If yes, is advance directive on file with [facility]? No 07/01/18 1:26am If not on file with [facility] will patient provide a copy? No 07/01/18 1:26am 09/15/2018 [facility] Functional Status No Data Provided for This Section
--- NOTE | 2019-06-24 19:02 | NUR ---
Pt had a neb tx last night and today at 1600
--- NOTE | 2019-06-24 19:02 | NUR ---
Report to JESSICA Multani
--- NOTE | 2019-06-24 19:44 | Diagnostic Imaging Report ---
ADDENDUM #1 Addendum: Indication provided: Difficulty breathing, cough. Signed by: Dr. Eric Alexander M.D. on 06/28/2019 12:02 PM ORIGINAL REPORT EXAM: CXR 2 VIEW - HOPD DATE: 06/24/2019 12:00 AM INDICATION: ^[id number] ^[id number] COMPARISON: None FINDINGS: Lines and tubes: None The heart is upper normal size. No pulmonary consolidation, pleural effusion or pneumothorax. Minimal scarring or atelectasis at the left lung base. Bilateral perihilar bronchial wall thickening. Upper abdomen unremarkable with cholecystectomy clips noted. Surgical clips are seen projected on the right chest wall. No acute bony abnormality. IMPRESSION: No consolidative pneumonia or pleural effusion. Bilateral perihilar bronchial wall thickening may be seen with bronchitis or reactive airway disorder. Signed by: Dr. Eric Alexander M.D. on 06/24/2019 7:41 PM
[2019-06-24] MEDS ORDERED: DOXYCYCLINE HY100 MG PO (19:56)
[2019-06-24] MEDS ORDERED: PROAIR HFA INH8.5 GM PO (19:56)
[2019-06-24] MEDS ORDERED: TESSALON PERLE100 MG PO (19:56)
[2019-06-24 21:16] VITALS: BP 147/69
== END 2019-06-24 20:13 | disposition home or self-care (01) ==
LOC: FSED 18:37
DX: R05 Cough (principal); J20.9 Acute bronchitis, unspecified; E11.9 Type 2 diabetes mellitus without complications; I10 Essential (primary) hypertension; I25.10 Atherosclerotic heart disease of native coronary artery without angina pectoris
CPT/HCPCS: 71046; 81003; 85025; 85379; 93005; 99283

== ENCOUNTER 2019-07-18 14:44 | Emergency (ER) | payer MEDICARE ==
[~2019-07-18] VITALS: Ht 149.9 cm; Wt 74.8 kg
[~2019-07-18 14:44] MED LIST changes: +DOXYCYCLINE HY100 MG PO; +PROAIR HFA INH8.5 GM PO; +TESSALON PERLE100 MG PO
--- OUTSIDE RECORDS SUMMARY | 2019-07-18 14:46 | XMS REPORT | Clinical Summary ---
Author Author Syed [facility] Organization [facility] Address Unknown Phone Unavailable Care Team Providers Care Busser Name Role Phone Asked, No Pcp PCP [...] right foot 08/08/2018 Emergency Emergency Medicine after 07/17/2018 Social History Date Tobacco Use Types Packs/Day [...] Comments Vital Sign 169/78 11/09/2018 11:00 PM CLIP AND HANGER ATTACHER Blood Pressure 80 11/09/2018 11:00 PM CLIP AND HANGER ATTACHER Pulse 37.3 C (99.1 F) 11/09/2018 9:29 PM CLIP AND HANGER ATTACHER Temperature 16 11/09/2018 11:00 PM CLIP AND HANGER ATTACHER Respiratory Rate 95% 11/09/2018 11:00 PM CLIP AND HANGER ATTACHER Oxygen Saturation - - Inhaled Oxygen Concentration 72.6 kg (160 lb) 11/09/2018 9:28 PM CLIP AND HANGER ATTACHER Weight 149.9 cm (4' 11") 11/09/2018 9:28 PM CLIP AND HANGER ATTACHER Height 32.32 11/09/2018 9:28 PM CLIP AND HANGER ATTACHER Body Mass Index Plan of Treatment Health Maintenance Due Date Last Done Comments BREAST CANCER SCREENING 2000 COLONOSCOPY SCREENING 2000 SHINGLES VACCINES (#1) 2000 65+ PNEUMOCOCCAL VACCINE 2015 (1 of 2 - PCV13) INFLUENZA VACCINE 05/26/2019 Procedures Comments Procedure Name Priority Date/Time Associated Diagnosis US DUPLEX ARTERIAL UPPER STAT 11/09/2018 EXTREMITY LEFT 10:54 PM [employer]IP AND HANGER ATTACHER US DUPLEX VENOUS UPPER STAT 11/09/2018 EXTREMITY LEFT 10:35 PM CLIP AND HANGER ATTACHER ESTIMATED GFR STAT 11/09/2018 10:12 PM CLIP AND HANGER ATTACHER CREATINE KINASE, TOTAL STAT 11/09/2018 (CPK) 10:12 PM CLIP AND HANGER ATTACHER COMPREHENSIVE METABOLIC STAT 11/09/2018 PANEL 10:12 PM CLIP AND HANGER ATTACHER PARTIAL THROMBOPLASTIN STAT 11/09/2018 TIME (PTT) 10:12 PM CLIP AND HANGER ATTACHER PROTHROMBIN TIME WITH INR STAT 11/09/2018 10:12 PM CLIP AND HANGER ATTACHER HC COMPLETE BLD COUNT STAT 11/09/2018 W/AUTO DIFF 10:12 PM CLIP AND HANGER ATTACHER XR FOREARM 2 VW LEFT STAT 11/09/2018 9:56 PM CLIP AND HANGER ATTACHER ECG ED PRELIMINARY Routine 11/05/2018 INTERPRETATION 10:23 PM CLIP AND HANGER ATTACHER POC GLUCOSE Routine 11/05/2018 9:19 PM CLIP AND HANGER ATTACHER CT ABDOMEN PELVIS W STAT 11/05/2018 CONTRAST 9:08 PM CLIP AND HANGER ATTACHER LIPASE LEVEL Routine 11/05/2018 8:14 PM CLIP AND HANGER ATTACHER ESTIMATED GFR Routine 11/05/2018 8:14 PM CLIP AND HANGER ATTACHER COMPREHENSIVE METABOLIC Routine 11/05/2018 PANEL 8:14 PM CLIP AND HANGER ATTACHER CREATINE KINASE, TOTAL Routine 11/05/2018 (CPK) 8:14 PM CLIP AND HANGER ATTACHER TROPONIN STAT 11/05/2018 6:47 PM CLIP AND HANGER ATTACHER URINALYSIS SCREEN AND STAT 11/05/2018 MICROSCOPY, WITH REFLEX 6:47 PM CLIP AND HANGER ATTACHER TO CULTURE PARTIAL THROMBOPLASTIN STAT 11/05/2018 TIME (PTT) 6:47 PM CLIP AND HANGER ATTACHER PROTHROMBIN TIME WITH INR STAT 11/05/2018 6:47 PM CLIP AND HANGER ATTACHER HC COMPLETE BLD COUNT STAT 11/05/2018 W/AUTO DIFF 6:47 PM CLIP AND HANGER ATTACHER URINE CULTURE STAT 11/05/2018 6:47 PM CLIP AND HANGER ATTACHER XR CHEST 1 VW PORTABLE STAT 11/05/2018 6:28 PM CLIP AND HANGER ATTACHER ECG 12-LEAD STAT 11/05/2018 6:26 PM CLIP AND HANGER ATTACHER POC GLUCOSE Routine 08/08/2018 3:29 PM CDT XR ANKLE 3+ VW RIGHT STAT 08/08/2018 3:19 PM CDT XR FOOT 3+ VW RIGHT STAT 08/08/2018 3:19 PM CDT after 07/17/2018 Results * Us duplex arterial upper extremity (11/09/2018 10:54 PM CLIP AND HANGER ATTACHER) LT AXIL PSV 151.20 cm/s [facility] [...] the left upper extremity Performing Organization Address [facility] Phone Number [facility] [address] [place] [address] * Us duplex venous upper extremity (11/09/2018 10:35 PM CLIP AND HANGER ATTACHER) Specimen Narrative Performed At HM [facility] There is no evidence of DVT in the left upper extremity. Performing Organization Address [facility] Phone Number [facility] [address] [place] [address] * Estimated GFR (11/09/2018 10:12 PM CLIP AND HANGER ATTACHER) Only the most recent of 2 results within the time period is included. [facility] Estimated GFR 58 (A) mL/min/1.73 m2 [place] Comment: LATONIA [facility] rpretation G1 >=90 Normal or high G2 60-89Mildly decreased [id number] Mildly to moderately decreased [id number] Moderately to severely decreased G4 15-29Severely decreased G5 <15Kidney failure The eGFR was calculated using the Chronic Kidney Disease Epidemiology Collaboration (CKD-EPI) equation. Interpretation is based on recommendations of the National Kidney Foundation-Kidney Disease Outcomes Quality Initiative (NKF-KDOQI) published in 2014. Specimen Plasma specimen Performing Organization Address [facility] Phone Number [address] * Partial thromboplastin time, activated (11/09/2018 10:12 PM CLIP AND HANGER ATTACHER) Only the most recent of 2 results within the time period is included. [facility] PTT 34.7 23.0 - 36.0 sec [place]D Comment: LATONIA ANTUNEZ PTT therapeutic range for [facility] unfractionated heparin is 61.0-112.0 seconds which corresponds to Anti-Xa 0.3-0.7 U/ml. Specimen Blood Performing Organization Address [facility] Phone Number [address] * Prothrombin time with INR (11/09/2018 10:12 PM CLIP AND HANGER ATTACHER) Only the most recent of 2 results within the time period is included. [facility] Prothrombin 12.7 11.5 - 14.5 sec [facility] INR 1.0 [place] Comment: LATONIA ANTUNEZ The International Normalized [facility] Ratio (INR) is a therapeutic monitoring tool for patients who are stable on oral anticoagulant therapy. An INR of 2.0-3.0 is suggested for deep vein thrombosis/pulmonary embolism. Specimen Blood Performing Organization Address [facility] Phone Number [address] [place] MEDICINE [facility] [id number] [place] [address] * CBC with platelet and differential (11/09/2018 10:12 PM CLIP AND HANGER ATTACHER) Only the most recent of 2 results within the time period is included. [facility] WBC 10.07 4.50 - 11.00 k/uL [facility] RBC 3.86 (L) 4.20 - 5.50 m/uL [facility] HGB 11.4 (L) 12.0 - 16.0 g/dL [facility] HCT 32.5 (L) 37.0 - 47.0 % [facility] MCV 84.2 82.0 - 100.0 fL [facility] MCH 29.5 27.0 - 34.0 pg [facility] MCHC 35.1 31.0 - 37.0 g/dL [facility] RDW - SD 36.1 (L) 37.0 - 55.0 fL [facility] MPV 9.6 8.8 - 13.2 fL [facility] Platelet count 261 150 - 400 k/uL [facility] Nucleated RBC 0.00 /100 WBC [facility] Neutrophils 67.9 39.0 - 69.0 % [facility] Lymphocytes 20.1 (L) 25.0 - 45.0 % [facility] Monocytes 7.8 0.0 - 10.0 % [facility] Eosinophils 3.1 0.0 - 5.0 % [facility] Basophils 0.9 0.0 - 1.0 % [facility] Specimen Blood Performing Organization Address City/State/Zipcode Phone Number [facility] [address] [place] [address] PATHOLOGY AND GENOMIC MEDICINE [address] * Creatine kinase, total (CPK) (11/09/2018 10:12 PM CLIP AND HANGER ATTACHER) Only the most recent of 2 results within the time period is included. [facility] Creatine kinase 52 26 - 192 U/L [facility] Specimen Plasma specimen Performing Organization Address City/[facility] Phone Number [facility] [id number] [place] [address] [place] [address] PATHOLOGY AND GENOMIC MEDICINE [address] [place] [address] [facility] * Comprehensive metabolic panel (11/09/2018 10:12 PM CLIP AND HANGER ATTACHER) Only the most recent of 2 results within the time period is included. Sodium 138 135 - 148 mEq/L [facility] Potassium 4.1 3.5 - 5.0 mEq/L [facility] Chloride 100 98 - 112 mEq/L [facility] CO2 23 (L) 24 - 31 mEq/L [facility] Anion gap 15@ANIO 7 - 15 mEq/L [facility] BUN 18 8 - 23 mg/dL [facility] Creatinine 1.00 (H) 0.50 - 0.90 mg/dL [facility] Glucose 271 (H) 65 - 99 mg/dL [facility] Calcium 9.8 8.8 - 10.2 mg/dL [facility] Protein 7.5 6.3 - 8.3 g/dL [place] Comment: [facility] 4.6-7.0 g/dL 1 week 4.4-7.6 g/dL 7 months-1year 5.1-7.3 g/dL 1-2 years5.6-7 .5 g/dL >3 years6.0-8 .0 g/dL 18-150 6.3-8.3 g/dL Albumin 3.9 3.5 - 5.0 g/dL [facility] A/G ratio 1.1 0.7 - 3.8 [facility] Alkaline 98 35 - 104 U/L [place] phosphatase [facility] AST 16 10 - 35 U/L [facility] ALT 17 5 - 50 U/L [facility] Total bilirubin 0.3 0.0 - 1.2 mg/dL [facility] Specimen Plasma specimen Performing Organization Address City/[facility]/Zipcode Phone Number [facility] [place]MENT [place] [id number] [place] [address] [place] [address] PATHOLOGY AND GENOMIC MEDICINE [facility] [id number] [place] [address] [place] [address] [facility] * XR Forearm 2 Vw Left (11/09/2018 9:56 PM CLIP AND HANGER ATTACHER) Specimen Narrative Performed At XR FOREARM 2 VW LEFT [facility] CLINICAL INDICATION:bony painforearmno history of trauma COMPARISON:None. IMPRESSION: There is no acute fracture or dislocation. There is no elbow joint effusion. The bones are demineralized. There are degenerative changes of the wrist with cysts within some of the carpal bones. [facility]-[id number] Procedure Note Hm Interface, Radiology Results Incoming - 11/09/2018 10:53 PM CLIP AND HANGER ATTACHER XR FOREARM 2 VW LEFT CLINICAL INDICATION: bony pain forearm no history of trauma COMPARISON: None. IMPRESSION: There is no acute fracture or dislocation. There is no elbow joint effusion. The bones are demineralized. There are degenerative changes of the wrist with cysts within some of the carpal bones. [facility]-[id number] Performing Organization Address [facility] Phone Number [facility] [address] [place] [address] * ECG ED Preliminary Interpretation - Not an Order (11/05/2018 10:23 PM CLIP AND HANGER ATTACHER) Narrative Performed At Kamryn Nelson NP-C 11/06/20189:37 AM ECG ED Preliminary Interpretation - Not an Order Performed by: Kamryn Nelson NP-C Authorized by: Gino Vasquez MD ECG reviewed by ED Physician in the absence of a supervisor final: yes Previous ECG: Previous ECG:Unavailable Interpretation: Interpretation: abnormal Rate: ECG rate:76 ECG rate assessment: normal Rhythm: Rhythm: sinus rhythm Ectopy: Ectopy: none QRS: QRS axis:Normal Conduction: Conduction: normal ST segments: ST segments:Normal T waves: T waves: normal Comments: Ant infarct age undertermined * POC glucose (11/05/2018 9:19 PM CLIP AND HANGER ATTACHER) Only the most recent of 2 results within the time period is included. POC glucose 100 (H) 65 - 99 mg/dL [place] Comment: LATONIA [facility] Meter ID: [id number] [facility] Vacuum Cooker Operator: Francisco Sanders Specimen Performing Organization Address City/[facility] Phone Number [facility] [place] [address] [place] [address] PATHOLOGY AND GENOMIC MEDICINE [facility] [address] [place] [address] [facility] * CT Abdomen Pelvis W Contrast (11/05/2018 9:08 PM CLIP AND HANGER ATTACHER) Specimen Narrative Performed At EXAMINATION:CT ABDOMEN PELVIS [...] pathology. Additional non-acute findings, as described above. [facility]-[id number] Procedure Note [facility], Radiology Results Incoming - 11/05/2018 9:21 PM CLIP AND HANGER ATTACHER EXAMINATION: CT ABDOMEN PELVIS W CONTRAST CLINICAL [...] pathology. Additional non-acute findings, as described above. [facility]-[id number] Performing Organization Address City/[facility]/Zipcode Phone Number [employer] [address] [place] [address] * Lipase level (11/05/2018 8:14 PM CLIP AND HANGER ATTACHER) [facility] Lipase 26 13 - 60 U/L [facility] Specimen Plasma specimen Performing Organization Address City/[facility] Phone [place] [address] [place] [address] PATHOLOGY AND GENOMIC MEDICINE [facility] [id number] [place] [address] * Urinalysis screen and microscopy, with reflex to culture (11/05/2018 6:47 PM CLIP AND HANGER ATTACHER) Specimen site Clean catch [facility] Color, UA Straw [facility] Appearance, UA Clear [facility] Specific 1.006 1.001 - 1.035 [place] gravity, [facility] pH, UA 7.0 5.0 - 8.5 [facility] Protein, UA Negative Negative [facility] Glucose, UA Negative Negative [facility] Ketones, UA Negative Negative [facility] Bilirubin, UA Negative Negative [facility] Blood, UA Negative Negative [facility] Nitrite, UA Negative Negative [facility] Urobilinogen, Negative <2.0 [facility] Leukocyte Negative Negative [place] esterase, [facility] Epithelial Few /HPF SYED cells, UA [facility] WBC, UA 0-5 0 - 4 /HPF [facility] RBC, UA 0-5 0 - 5 /HPF [facility] Bacteria, UA None seen None seen [facility] Yeast, UA None seen [facility] Yeast with None seen [facility] Specimen Urine Performing Organization Address [facility] Phone Number [address] [place] [address] PATHOLOGY AND GENOMIC MEDICINE [address] * Troponin (11/05/2018 6:47 PM CLIP AND HANGER ATTACHER) [facility] Troponin <0.300 0.000 - 0.300 ng/mL [place]D Comment: [facility] 0.30 - 1.49 [facility] ng/mlMay indicate increased risk of acute coronary syndrome. >=1.5 ng/ml Consistent with acute myocardial infarction. The diagnostic value of a single normal or non-diagnostic result is questionable.Serial samples at 2-6 hour intervals are required to rule out acute myocardial injury. Specimen Plasma specimen Performing Organization Address [facility] Phone Number [address] [place] [address] PATHOLOGY AND [facility] MEDICINE [address] * Urine culture (11/05/2018 6:47 PM CLIP AND HANGER ATTACHER) [facility] Urine culture SEE COMMENTComment: [place] Bacteriuria screen negative. [facility] Specimen Urine Performing Organization Address [facility] Phone Number [address] [place] [address] PATHOLOGY AND GENOMIC MEDICINE [address] * XR Chest 1 Vw Portable (11/05/2018 6:28 PM CLIP AND HANGER ATTACHER) Specimen Narrative Performed At EXAMINATION: XR CHEST 1 VW PORTABLE [facility] INDICATION: epigastric pain COMPARISON: 09/15/1999 IMPRESSION: There are linear opacities in both lung bases, favored to represent atelectasis. There may be trace pleural effusions. No pneumothorax. No discrete airspace disease. Heart size within normal limits. Aortic calcifications, increased. Spondylosis. Diffuse osteopenia. Surgical clips overlie the right lateral chest wall. [facility]-[id number] Procedure Note Interface, Radiology Results Incoming - 11/05/2018 6:38 PM CLIP AND HANGER ATTACHER EXAMINATION: XR CHEST 1 VW PORTABLE INDICATION: epigastric pain COMPARISON: 09/15/1999 IMPRESSION: There are linear opacities in both lung bases, favored to represent atelectasis. There may be trace pleural effusions. No pneumothorax. No discrete airspace disease. Heart size within normal limits. Aortic calcifications, increased. Spondylosis. Diffuse osteopenia. Surgical clips overlie the right lateral chest wall. [facility]-[id number] Performing Organization Address [facility] Phone Number [facility] [address] [place] [address] * ECG 12 lead (11/05/2018 6:26 PM CLIP AND HANGER ATTACHER) Ventricular 76 [facility] rate Atrial rate 76 [facility] TN interval 204 [facility] QRSD interval 72 [facility] QT interval 372 [facility] QTC interval 418 [facility] P axis 1 13 [facility] QRS axis 1 -15 [facility] T wave axis -2 [facility] MUSE EKG impression Normal sinus rhythm-Anterior [facility] MUSE infarct , age undetermined-Abnormal ECG-No previous ECGs available- Specimen Narrative Performed At Performing Organization Address [facility] Phone Number [facility] MUSE [address] [place] [address] * XR Foot 3+ Vw Right (08/08/2018 3:19 PM CDT) Specimen Narrative Performed At EXAMINATION: [facility] XR FOOT 3VW RIGHT CLINICAL HISTORY: foot pain COMPARISON: None. FINDINGS: Mineralization is normal. Joint spaces are preserved. There is no fracture, subluxation or periosteal reaction. A small calcaneal spur is present. Minimal calcification at the insertion of the Achilles tendon is noted. IMPRESSION: No acute findings. [facility]-[id number] Procedure Note Interface, Radiology Results Incoming - 08/08/2018 3:25 PM CDT EXAMINATION: XR FOOT 3 VW RIGHT CLINICAL HISTORY: foot pain COMPARISON: None. FINDINGS: Mineralization is normal. Joint spaces are preserved. There is no fracture, subluxation or periosteal reaction. A small calcaneal spur is present. Minimal calcification at the insertion of the Achilles tendon is noted. IMPRESSION: No acute findings. [facility]-[id number] Performing Organization Address City/State/Zipcode Phone Number [facility] [address] [place] [address] * XR Ankle 3+ Vw Right (08/08/2018 3:19 PM CDT) Specimen Narrative Performed At EXAMINATION: XR ANKLE 3VW RIGHT [facility] INDICATION: ankle pain COMPARISON: None IMPRESSION: No acute fracture or malalignment. No soft tissue abnormalities. [facility]-[id number] Procedure Note Hm Interface, Radiology Results Incoming - 08/08/2018 3:32 PM CDT EXAMINATION: XR ANKLE 3 VW RIGHT INDICATION: ankle pain COMPARISON: None IMPRESSION: No acute fracture or malalignment. No soft tissue abnormalities. [id number] Performing Organization Address City/[facility] Phone Number [facility] [address] [place] [address] after 07/17/2018 Insurance Type Payer Benefit Subscriber ID Effective Phone Address Plan / Dates Group HMO AETNA MEDICARE AETNA xxxxxxxx 2016-P MEDICARE resent HMO/PPO [facility] Advance Directives For more information, please contact: [phone] Patient Didactic Program In Dietetics Director Explanation Type Date Recorded Advance Directives, 11/05/2018 7:19 PM Living Will and Medical Power of Ammonia Print Operator
--- OUTSIDE RECORDS SUMMARY | 2019-07-18 14:47 | XMS REPORT | Continuity of Care Document ---
Author Author TVTY Address Unknown Phone Unavailable Care Team Providers Care Lead Coater Name Role Phone [facility] [employer] Information [employer] Unavailable Unavailable Problems No Data Provided for This Section Medications Medication Details Route Status Patient Instructions Ordering Provider Order Date Source Aspirin (Aspir 81) 81 Mg Tablet. Daily [facility] Atorvastatin Calcium 20 Mg Tablet Bedtime Active [facility] Carvedilol 12.5 Mg Tablet Twice A Day [facility] Clonidine Hcl 0.1 Mg Tablet As Needed [facility] Clopidogrel Bisulfate (Plavix) 75 Mg Tablet Daily [facility] Insulin Glargine (Lantus 3ML Pen) 100 Units/1 Ml Inj Use As Directed [facility] Insulin Human Regular (Humulin-R 10ML Vial) 100 Units/Ml Inj Active [facility] Losartan Potassium 100 Mg Tablet Daily [facility] Nifedipine (Nifedipine Er) 30 Mg Tab.er.24 Daily [facility] Omeprazole 40 Mg Capsule.dr [place] Active [facility] Tramadol Hcl (Ultram 50MG*) 50 Mg Tab As Needed [facility] Triamterene/Hctz (Triamterene-Hctz 37.5-25 Mg Tb) 1 Ea Tab Daily Active [facility] Allergies, Adverse Reactions, Alerts No Known Medication Allergies Immunizations No Data Provided for This Section Results Order Name Results Value Reference Range Date Interpretation Comments Source Capillary blood glucose measurement by glucometer (mass/volume) 148 70 - 120 07/01/2018 [facility] Pathology Reports No Data Provided for This [...] DC Date Status Source Departed Emergency Room [id number] BEATRICE GARIBAY MD 07/01/2018 07/01/2018 [facility] Departed Emergency Room [id number] LYNN HENDERSON MD 08/06/2018 08/06/2018 [facility] Departed Emergency Room [id number] BRANDON BLANCAS MD 09/15/2018 09/15/2018 [facility] Procedures No Data Provided for This Section [...] Follow up with your doctor tomorrow. 09/15/2018 [facility] Social History Social History Date Source Smoking Status Start Date Stop Date Never Smoker 09/15/2018 [facility] Family History No Data Provided for This Section Advance Directives Order Name Results Value Date Source Advance Directives Advance Directives Directive Response Recorded Date/Time Does the patient have an advance directive? No 07/01/18 1:26am If yes, is advance directive on file with [facility]? No 07/01/18 1:26am If not on file with [facility] will patient provide a copy? No 07/01/18 1:26am 09/15/2018 [facility] Functional Status No Data Provided for This Section
[2019-07-18] MEDS ORDERED: HYDRALAZINE HCL 25 MG TAB ONE (15:02)
[2019-07-18] MEDS ORDERED: HYDRALAZINE HCL 25 MG TAB PO ONE (15:15)
[2019-07-18] MEDS ORDERED: HYDRALAZINE HCL 20 MG/ML VIAL ONE (15:42)
[2019-07-18] MEDS ORDERED: HYDRALAZINE HCL 20 MG/ML VIAL IV ONE (15:45)
[2019-07-18 16:28] VITALS: BP 148/64
== END 2019-07-18 16:32 | disposition home or self-care (01) ==
LOC: FSED 14:44
DX: I16.9 Hypertensive crisis, unspecified (principal)
CPT/HCPCS: 99283; J0360

== ENCOUNTER 2020-08-18 04:36 | Emergency (ER) | payer MEDICARE ==
[~2020-08-18] VITALS: Ht 149.9 cm; Wt 74.8 kg
[2020-08-18 04:57] LABS: BASOPHILS # (AUTO) 0.1 (0.0-0.1); CLARITY,URINE CLEAR (CLEAR); COLOR,URINE YELLOW (YELLOW); EOSINOPHILS # (AUTO) 0.4 (0.0-0.4); EOSINOPHILS % 4.4 % (0.0-6.0); HEMATOCRIT 38.2 % (34.2-44.1); HEMOGLOBIN 13.4 g/dL (12.0-16.0); LYMPHOCYTES # (AUTO) 2.3 (1.0-3.2); LYMPHOCYTES % 24.2 % (18.0-39.1); MEAN CORPUSCULAR HEMOGLOBIN 29.2 pg (28-32); MEAN CORPUSCULAR HGB CONC 35.1 g/dL (31-35); MEAN CORPUSCULAR VOLUME 83.2 fL (81-99); MONOCYTES # (AUTO) 0.9 (0.2-0.8); MONOCYTES % 9.5 % (4.4-11.3); NEUTROPHILS # (AUTO) 5.8 (2.1-6.9); NEUTROPHILS % 60.6 % (38.7-80.0); PLATELET COUNT 234 x10e3/uL (140-360); RED BLOOD COUNT 4.59 x10e6/uL (3.6-5.1); RED CELL DISTRIBUTION WIDTH 12.4 % (11.7-14.4)
[2020-08-18 04:58] LABS: BILIRUBIN,URINE NEGATIVE (NEGATIVE); KETONES,URINE NEGATIVE (NEGATIVE); LEUKOCYTE ESTERASE ,URINE TRACE (NEGATIVE); NITRITE,URINE NEGATIVE (NEGATIVE); PROTEIN,URINE DIPSTICK 2+ (NEGATIVE); URINE UROBILINOGEN 0.2 mg/dL (0.2 - 1)
[2020-08-18 05:09] LABS: BACTERIA,URINE FEW /HPF; EPITHELIAL CELLS,URINE MODERATE /LPF; RBC,URINE 0-5 /HPF (0-5)
[2020-08-18 05:19] LABS: ALBUMIN 4.4 g/dL (3.5-5.0); ALBUMIN/GLOBULIN RATIO 1.3 (0.8-2.0); ANION GAP 14.4 mmol/L (8-16); CALCIUM 9.6 mg/dL (8.4-10.2); CREATININE, SERUM 1.18 mg/dL (0.57-1.11); POTASSIUM 3.4 mmol/L (3.5-5.1)
== END 2020-08-18 05:45 | disposition home or self-care (01) ==
LOC: ER 04:39
DX: R68.83 Chills (without fever) (principal); I10 Essential (primary) hypertension; E11.9 Type 2 diabetes mellitus without complications; E78.5 Hyperlipidemia, unspecified; I25.10 Atherosclerotic heart disease of native coronary artery without angina pectoris; Z85.3 Personal history of malignant neoplasm of breast
CPT/HCPCS: 36415; 80053; 81001; 84443; 85025; 99284

== ENCOUNTER → 2024-10-14 | Outpatient (REF) | payer MEDICARE | LOC: DX 14:31 | PROVIDERS: ATTEND Internal Medicine | DX: M81.0 Age-related osteoporosis without current pathological fracture (principal); M54.50 Low back pain, unspecified; R05.9 Cough, unspecified | CPT/HCPCS: 71046; 72070; 72100; 77080 ==

== ENCOUNTER → 2025-05-10 | Outpatient (REF) | payer MEDICARE | LOC: US 12:35 | PROVIDERS: ATTEND Internal Medicine | DX: E04.1 Nontoxic single thyroid nodule (principal) | CPT/HCPCS: 76536 ==